=== PATIENT | female | born 1975 | race Hispanic/Latino ===

== ENCOUNTER 2019-02-10 17:08 | Inpatient (IN) | payer OTHER ==
--- OUTSIDE RECORDS SUMMARY | 2019-02-10 17:10 | XMS REPORT ---
:1975 Author Organization [facility] Address [address] [place] [address] Dr. Dangelo [address] [place] [id number] Care Team Providers Name Role Phone Unavailable Unavailable Unavailable Problems This patient has no known problems. Allergies, Adverse Reactions, Alerts This patient has no known allergies or adverse reactions. Medications This patient has no known medications.
[2019-02-10] MEDS ORDERED: ONDANSETRON 4 MG/2 ML VIAL ONE (19:31)
[2019-02-10] MEDS ORDERED: MORPHINE 2 MG/ML SYR ONE ×2 (19:31→20:25)
[2019-02-10] MEDS ORDERED: NA CHLORIDE 0.9% 1,000 ML ONE (19:32)
[2019-02-10 19:46] LABS: Absolute Lymphocytes (CBC) 2.1 K/uL (0.7-4.9); Basophils % 0.4 % (0-1.3); Hematocrit 40.9 % (36.0-45.0); Lymphocytes % 28.4 % (15.3-44.8)
[2019-02-10 20:04] LABS: ALT/SGPT 23 U/L (12-78); AST/SGOT 11 U/L (15-37); Albumin 3.9 g/dL (3.4-5.0); Alkaline Phosphatase 86 U/L (45-117); BUN Blood Urea Nitrogen 21 mg/dL (7-18); Bicarbonate 28 mmol/L (21-32); Bilirubin Direct < 0.1 mg/dL (0-0.2); Bilirubin Total 0.3 mg/dL (0.2-1.0); Glucose Level 88 mg/dL (74-106); Lipase 78 U/L (73-393); Potassium 3.6 mmol/L (3.5-5.1); Protein, Total 7.1 g/dL (6.4-8.2); Sodium Level 141 mmol/L (136-145)
[2019-02-10] MEDS ORDERED: FAMOTIDINE 20 MG/2 ML VIAL IV ONE (20:11)
[2019-02-10 20:19] LABS: Urine Bacteria <20 /HPF (<20)
[2019-02-10 20:22] LABS: Urine Culture Reflex Order NOT NEEDED
[2019-02-10 20:23] LABS: Urine Mucus 1+ /HPF (NONE SEEN)
[2019-02-10] MEDS ORDERED: KETOROLAC 30 MG/ML INJ ONE (20:26)
--- NOTE | 2019-02-10 20:43 | RAD REPORT ---
EXAM DESCRIPTION: US - Abdomen Exam Limited - 02/10/2019 8:35 pm CLINICAL HISTORY: Abdominal pain. COMPARISON: 2009 FINDINGS: The gallbladder wall is not thickened. Multiple gallstones. One is present within the gal lbladder neck The biliary tree is upper limits normal caliber. IMPRESSION: Cholelithiasis without evidence cholecystitis
[2019-02-10 21:28] LABS: Urine Blood 2+ (NEG); Urine Glucose NEGATIVE (NEG); Urine Protein NEGATIVE (NEG); Urine Specific Gravity >1.030 (1.005-1.030); Urine pH 5.5 (5.0-7.0)
--- NOTE | 2019-02-10 21:58 | ER ---
Nurse's Notes [facility] Name: Ivana Diaz Age: 44 yrs Sex: Female : 1975 Arrival Date: 02/10/2019 Time: 17:10 Bed 28 Private MD: Mary Bañuelos H Diagnosis: Cholelithiasis;Upper abdominal pain, unspecified-intractable Presentation: 02/10 17:45 Presenting complaint: Patient states: "Yesterday I woke up with sharp pain here (pt aj1 points to epigastric area) and goes to my right side and back. The same thing happened 2 weeks ago, it went away then so I figured it would go away again, but then I started throwing up and I have a low grade fever". Transition of care: patient was not received from another setting of care. Onset of symptoms was February 09, 2018. Risk Assessment: Do you want to hurt yourself or someone else? Patient reports no desire to harm self or others. Initial Sepsis Screen: Does the patient meet any 2 criteria? HR > 90 bpm. No. Patient's initial sepsis screen is negative. Does the patient have a suspected source of infection? Yes: Acute abdominal pain. Care prior to arrival: None. 17:45 Method Of Arrival: Ambulatory aj1 17:45 Acuity: SHEN 3 aj1 Triage Assessment: 17:47 General: Appears in no apparent distress. uncomfortable, Behavior is calm, cooperative, aj1 appropriate for age. Pain: Complains of pain in epigastric area Pain radiates to back and right upper quadrant Pain currently is 5 out of 10 on a pain scale. Neuro: Level of Consciousness is awake, alert, obeys commands. Cardiovascular: Patient's skin is warm and dry. Respiratory: Airway is patent Respiratory effort is even, unlabored, Respiratory pattern is regular, symmetrical. GI: Reports upper abdominal pain, nausea, vomiting. RN SURGERY: 17:47 LMP N/A - control method aj1 Historical: - Allergies: 17:47 No Known Allergies; aj1 - Home Meds: 17:47 Lisinopril Oral [Active]; aj1 - PMHx: 17:47 Hypertension; aj1 - PSHx: 17:47 breast augmentation; aj1 - Immunization history:: Flu vaccine is up to date. - Social history:: Smoking status: Patient/guardian denies using tobacco. - Ebola Screening: : Patient denies travel to an Ebola-affected area in the 21 days before illness onset. Screenin:18 Abuse screen: Denies threats or abuse. Denies injuries from another. Nutritional rv screening: No deficits noted. Tuberculosis screening: No symptoms or risk factors identified. Fall Risk None identified. Assessment: 19:15 General: Appears in no apparent distress. comfortable, Behavior is calm, cooperative. rv Pain: Complains of pain in back. Neuro: Level of Consciousness is awake, alert, obeys commands, Oriented to person, place, time, situation. Cardiovascular: Patient's skin is warm and dry. Respiratory: Airway is patent. GI: Abdomen is round non-distended. GI: Parent/caregiver reports the patient having vomiting. : No signs and/or symptoms were reported regarding the genitourinary system. EENT: No signs and/or symptoms were reported regarding the EENT system. Derm: Skin is intact. Musculoskeletal: No signs and/or symptoms reported regarding the musculoskeletal system. 21:25 Reassessment: Patient appears in no apparent distress at this time. Patient and/or rv family updated on plan of care and expected duration. Pain level reassessed. Patient is alert, oriented x 3, equal unlabored respirations, skin warm/dry/pink. patient is more comfortable after giving the pain medications. Jose G Aguilar talked to the patient and family at bedside, explained the result of the diagnostics and plan of care. Patient states feeling better. Patient states symptoms have improved. 22:00 Reassessment: patient instructed on NPO after midnight. rv Vital Signs: 17:47 BP 119 / 88; Pulse 102; Resp 20; Temp 98.5; Pulse Ox 100% on R/A; Weight 74.84 kg (R); aj1 Height 5 ft. 7 in. (170.18 cm) (R); 19:39 BP 104 / 66; Pulse 75; Resp 16; Pulse Ox 100% on R/A; rv 20:30 BP 108 / 73; Pulse 80; Resp 15 S; Pulse Ox 100% on R/A; rv 21:00 BP 122 / 86; Pulse 84; Resp 15; Pulse Ox 100% on R/A; rv 22:00 BP 113 / 78; Pulse 73; Resp 14; Pulse Ox 100% on R/A; rv 22:30 BP 109 / 78; Pulse 78; Resp 15; Pulse Ox 100% on R/A; rv 23:00 BP 121 / 95; Pulse 72; Resp 16; Pulse Ox 100% ; rv 17:47 Body Mass Index 25.84 (74.84 kg, 170.18 cm) aj1 ED Course: 17:10 Patient arrived in ED. ag5 17:12 Mary Bañuelos DO is Private Physician. ag5 17:47 Triage completed. aj1 17:47 Arm band placed on Patient placed in waiting room, Patient notified of wait time. aj1 18:49 Jose G Aguilar PA is PHCP. cp 18:49 Fabiano Guzmán MD is Attending Physician. cp 18:54 Venkata Knowles, CURTIS is Primary Nurse. rv 19:18 Patient has correct armband on for positive identification. Bed in low position. Call rv light in reach. Side rails up X 1. Pulse ox on. NIBP on. 19:44 No provider procedures requiring assistance completed. Inserted saline lock: 20 gauge rv in left antecubital area, using aseptic technique. Blood collected. 20:36 Ultrasound completed. Patient tolerated well. Notified Primary Nurse . sg3 20:37 US Abdomen Limited In Process Unspecified. EDMS 21:57 Christopher Fields MD is Hospitalizing Provider. cp 23:50 Patient admitted, IV remains in place. rv Administered Medications: 19:45 Drug: morphine 2 mg Route: IVP; Site: left antecubital; rv 19:46 Drug: NS 0.9% 1000 ml Route: IV; Rate: 1 bolus; Site: left antecubital; rv 22:30 Follow up: IV Status: Completed infusion rv 19:46 Drug: Zofran 4 mg Route: IVP; Site: left antecubital; rv 20:29 Follow up: Response: No adverse reaction rv 20:18 Drug: Pepcid 20 mg Route: IVP; Site: left antecubital; rv 20:29 Follow up: Response: No adverse reaction rv 20:28 Drug: morphine 2 mg {Note: rass 0.} Route: IVP; Site: left antecubital; rv 20:28 Follow up: Response: No adverse reaction; Pain is unchanged, physician notified rv 23:07 Follow up: Response: No adverse reaction; Marked relief of symptoms; RASS: Alert and rv Calm (0) 20:29 Drug: TORadol 30 mg Route: IVP; Site: left antecubital; rv 22:24 Follow up: Response: No adverse reaction mg2 22:04 Drug: Rocephin - (cefTRIAXone) 1 grams Route: IVPB; Infused Over: 30 mins; Site: left rv antecubital; 22:25 Follow up: Response: No adverse reaction; IV Status: Completed infusion mg2 Outcome: 21:58 Decision to Hospitalize by Provider. cp 23:49 Admitted to Med/surg accompanied by nurse, via wheelchair, room 229, with chart, Report rv called to MILLICENT ACEVEDO 23:49 Condition: good 23:49 Instructed on the need for admit. 02/11 00:17 Patient left the ED. rv Signatures: Dispatcher [employer] Viv Montano RN RN aj1 Jose G Aguilar PA PA cp Godinez, Sarah sg3 Nnamdi Montalvo RN RN mg2 Venkata Knowles RN RN rv Ronel Bartlett ag5
--- NOTE | 2019-02-10 21:59 | EDPHYS ---
Physician Documentation [facility] Name: Ivana Diaz Age: 44 yrs Sex: Female : 1975 Arrival Date: 02/10/2019 Time: 17:10 Bed 28 Private MD: Mary Bañuelos H ED Physician Fabiano Guzmán HPI: 02/10 19:50 This 44 yrs old Female presents to ER via Ambulatory with complaints of cp Vomiting, Fever, Low Back Pain. 19:50 The patient presents with abdominal pain in the epigastric area. cp 19:50 Onset: The symptoms/episode began/occurred yesterday. The symptoms radiate to right cp back. Associated signs and symptoms: Pertinent positives: nausea and vomiting, Pertinent negatives: chest pain, constipation, diarrhea, dysuria, shortness of breath, vomiting blood. The symptoms are described as constant. Severity of pain: in the emergency department the pain is unchanged is a 5 / 10. 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 - Social history:: Smoking status: Patient/guardian denies using tobacco. - Ebola Screening: : Patient denies travel to an Ebola-affected area in the 21 days before illness onset. ROS: 20:00 Constitutional: Positive for poor PO intake, Negative for body aches, chills, fever. cp 20:00 Eyes: Negative for injury, pain, redness, and discharge. cp 20:00 ENT: Negative for drainage from ear(s), ear pain, sore throat, difficulty swallowing, cp difficulty handling secretions. 20:00 Cardiovascular: Negative for chest pain, palpitations. 20:00 Respiratory: Negative for cough, shortness of breath, wheezing. 20:00 Abdomen/GI: Positive for abdominal pain, nausea and vomiting, of the epigastric area, Negative for diarrhea, constipation, hematemesis, black/tarry stool, rectal bleeding. 20:00 Back: Positive for radiated pain. 20:00 : Negative for urinary symptoms, pelvic pain. 20:00 Skin: Negative for rash. 20:00 Neuro: Negative for altered mental status, headache, weakness. 20:00 All other systems are negative. Exam: 20:05 Constitutional: The patient appears in no acute distress, alert, awake, non-toxic, well cp developed, well nourished, uncomfortable. 20:05 Head/Face: Normocephalic, atraumatic. cp 20:05 Eyes: Periorbital structures: appear normal, Conjunctiva: normal, no exudate, no injection, Sclera: no appreciated abnormality, Lids and lashes: appear normal, bilaterally. 20:05 ENT: External ear(s): are unremarkable, Nose: is normal, Mouth: is normal, Posterior pharynx: is normal, airway is patent, no erythema, no exudate. 20:05 Neck: ROM/movement: is normal, is supple, without pain, no range of motions limitations, no nuchal rigidity. 20:05 Chest/axilla: Inspection: normal, Palpation: is normal, no crepitus, no tenderness. 20:05 Cardiovascular: Rate: normal, Rhythm: regular. 20:05 Respiratory: the patient does not display signs of respiratory distress, Respirations: normal, no use of accessory muscles, no retractions, labored breathing, is not present, Breath sounds: are clear throughout, no decreased breath sounds. 20:05 Abdomen/GI: Inspection: abdomen appears normal, Bowel sounds: active, all quadrants, Palpation: soft, in all quadrants, moderate abdominal tenderness, in the epigastric area and right upper quadrant, rebound tenderness, is not appreciated, voluntary guarding, is elicited in the epigastric area and right upper quadrant. 20:05 Back: pain, that is moderate, ROM is normal. 20:05 Skin: no rash present. 22:45 ECG was reviewed by the Attending Physician. cp Vital Signs: 17:47 BP 119 / 88; Pulse 102; Resp 20; Temp 98.5; Pulse Ox 100% on R/A; Weight 74.84 kg (R); aj1 Height 5 ft. 7 in. (170.18 cm) (R); 19:39 BP 104 / 66; Pulse 75; Resp 16; Pulse Ox 100% on R/A; rv 20:30 BP 108 / 73; Pulse 80; Resp 15 S; Pulse Ox 100% on R/A; rv 21:00 BP 122 / 86; Pulse 84; Resp 15; Pulse Ox 100% on R/A; rv 22:00 BP 113 / 78; Pulse 73; Resp 14; Pulse Ox 100% on R/A; rv 22:30 BP 109 / 78; Pulse 78; Resp 15; Pulse Ox 100% on R/A; rv 23:00 BP 121 / 95; Pulse 72; Resp 16; Pulse Ox 100% ; rv 17:47 Body Mass Index 25.84 (74.84 kg, 170.18 cm) aj1 MDM: 19:15 Patient medically screened. cp 20:00 Differential diagnosis: cholecystitis, Cholelithiasis, pancreatitis, Peptic Ulcer cp Disease, Perf. Duodenal Ulcer, Perf. Gastric Ulcer, Pyelonephritis, Ureterolithiasis, urinary tract infection. 21:00 Data reviewed: vital signs, nurses notes, lab test result(s), radiologic studies, cp ultrasound. 21:10 Physician consultation: Matthew Melgar MD was called at 21:05, was contacted at 21:05, regarding consult, patient's condition, will admit patient for cholecystectomy in morning if patient continues to have pain. 21:30 ED course: Patient requesting if DR Fields is available to perform surgery. 02/10 17:40 Order name: Urine Culture [facility] 02/10 17:40 Order name: Urine Microscopic Only; Complete Time: 20:55 [facility] 02/10 19:04 Order name: Urine Dipstick--Ancillary (enter results) [facility] 02/10 19:21 Order name: Basic Metabolic Panel; Complete Time: 20:22 02/10 20:55 Interpretation: Normal except: BUN 21; GFR 70. 02/10 19:21 Order name: CBC with Diff; Complete Time: 20:22 02/10 19:21 Order name: Creatinine for Radiology; Complete Time: 20:22 02/10 19:21 Order name: Hepatic Function; Complete Time: 20:22 cp 02/10 19:21 Order name: Lipase; Complete Time: 20:22 02/10 21:58 Order name: Urine --Ancillary (enter results) [facility] 02/10 22:25 Order name: Protime (+INR) EDMN 02/10 22:25 Order name: PTT, Activated Partial Thromb EDMS 02/10 22:25 Order name: Basic Metabolic Panel EDMS 02/10 22:25 Order name: Basic Metabolic Panel EDMS 02/10 22:25 Order name: CBC with Automated Diff EDMS 02/10 17:40 Order name: Urine Dipstick-Ancillary (obtain specimen); Complete Time: 19:03 snw 02/10 19:21 Order name: US Abdomen Limited; Complete Time: 20:55 cp 02/10 22:13 Order name: EKG; Complete Time: 22:14 cp 02/10 22:13 Order name: XRAY Chest (1 view) cp 02/10 22:25 Order name: NPO EDMS 02/10 22:25 Order name: CBC with Automated Diff EDMS 02/10 22:25 Order name: Lipase EDMS 02/10 22:25 Order name: Lipase EDMS 02/10 22:25 Order name: Liver (Hepatic) Function EDMS 02/10 22:25 Order name: Liver (Hepatic) Function EDMS 02/10 19:21 Order name: IV Saline Lock; Complete Time: 20:19 cp 02/10 19:21 Order name: Labs collected and sent; Complete Time: 20:19 cp 02/10 21:38 Order name: Urine Test (obtain specimen); Complete Time: 21:47 cp EC:45 Rate is 66 beats/min. Rhythm is regular. WI interval is normal. QRS interval is normal. cp QT interval is normal. Interpreted by me. Reviewed by me. Administered Medications: 19:45 Drug: morphine 2 mg Route: IVP; Site: left antecubital; rv 19:46 Drug: NS 0.9% 1000 ml Route: IV; Rate: 1 bolus; Site: left antecubital; rv 22:30 Follow up: IV Status: Completed infusion rv 19:46 Drug: Zofran 4 mg Route: IVP; Site: left antecubital; rv 20:29 Follow up: Response: No adverse reaction rv 20:18 Drug: Pepcid 20 mg Route: IVP; Site: left antecubital; rv 20:29 Follow up: Response: No adverse reaction rv 20:28 Drug: morphine 2 mg {Note: rass 0.} Route: IVP; Site: left antecubital; rv 20:28 Follow up: Response: No adverse reaction; Pain is unchanged, physician notified rv 23:07 Follow up: Response: No adverse reaction; Marked relief of symptoms; RASS: Alert and rv Calm (0) 20:29 Drug: TORadol 30 mg Route: IVP; Site: left antecubital; rv 22:24 Follow up: Response: No adverse reaction mg2 22:04 Drug: Rocephin - (cefTRIAXone) 1 grams Route: IVPB; Infused Over: 30 mins; Site: left rv antecubital; 22:25 Follow up: Response: No adverse reaction; IV Status: Completed infusion mg2 Disposition: 02/10/19 21:58 Hospitalization ordered by Christopher Fields for Observation. Preliminary diagnosis are Cholelithiasis, Upper abdominal pain, unspecified - intractable. - Bed requested for Telemetry/MedSurg (observation). - Status is Observation. rv - Condition is Stable. - Problem is new. - Symptoms have improved. UTI on Admission? No Addendum: 02/13/2019 09:04 Co-signature as Attending Physician, Fabiano Guzmán MD I agree with the assessment and k dr plan of care. Signatures: Dispatcher [employer] EDMS Viv Rodrigez RN RN aj1 Fabiano Guzmán MD MD kdr Mirna Bravo, MID TEACHER-C MID TEACHER-Csnw Jose G Aguilar PA PA Maria E Kaiser, CURTIS RN Venkata Knowles RN RN Nnamdi Montalvo RN mg2 Corrections: (The following items were deleted from the chart) 02/10 22:24 22:13 EKG - Nurse/Tech ordered. mg2 22:54 21:58 Hospitalization Ordered by Christopher Fields MD for Observation. Preliminary cg diagnosis is Cholelithiasis; Upper abdominal pain, unspecified - intractable. Bed requested for Telemetry/MedSurg (observation). Status is Observation. Condition is Stable. Problem is new. Symptoms have improved. UTI on Admission? No. cp 02/11 00:17 02/10 22:54 02/10/2019 21:58 Hospitalization Ordered by Christopher Fields MD for rv Observation. Preliminary diagnosis is Cholelithiasis; Upper abdominal pain, unspecified - intractable. Bed requested for Telemetry/MedSurg (observation). Status is Observation. Condition is Stable. Problem is new. Symptoms have improved. UTI on Admission? No. cg
[2019-02-10] MEDS ORDERED: CEFTRIAXONE/SWI 1gm 1 GM/10 ML SYR ONE (22:01)
[2019-02-10] MEDS ORDERED: ONDANSETRON 4 MG/2 ML VIAL IV PRN (22:20)
[2019-02-10] MEDS ORDERED: ACETAMINOPHEN 500 MG TAB PO PRN (22:20)
[2019-02-10 22:36] LABS: Urine Specific Gravity >1.030 (1.005-1.030)
[2019-02-10] MEDS: D5 0.45 NS 1,000 ML IV SCH (23:00)
[2019-02-11 00:44] VITALS: BMI 26.0
[2019-02-11] MEDS: MORPHINE 4 MG/ML SYR IV PRN ×4 (01:49→22:31)
[2019-02-11 06:27] LABS: Absolute Lymphocytes (CBC) 2.6 K/uL (0.7-4.9); Basophils % 0.6 % (0-1.3); Hematocrit 38.1 % (36.0-45.0); Lymphocytes % 39.9 % (15.3-44.8); MPV 7.9 fL (7.6-11.3); RBC Red Blood Cell Count 4.09 M/uL (3.86-4.86)
[2019-02-11 06:30] LABS: Protime INR 1.02
[2019-02-11 06:42] LABS: ALT/SGPT 22 U/L (12-78); AST/SGOT 10 U/L (15-37); Albumin 3.7 g/dL (3.4-5.0); Alkaline Phosphatase 70 U/L (45-117); BUN Blood Urea Nitrogen 22 mg/dL (7-18); Bicarbonate 25 mmol/L (21-32); Bilirubin Direct < 0.1 mg/dL (0-0.2); Bilirubin Total 0.5 mg/dL (0.2-1.0); Glucose Level 98 mg/dL (74-106); Lipase 109 U/L (73-393); Potassium 3.9 mmol/L (3.5-5.1); Protein, Total 6.7 g/dL (6.4-8.2); Sodium Level 141 mmol/L (136-145)
[2019-02-11] MEDS: D5 0.45 NS 1,000 ML IV SCH ×2 (10:05→17:18)
--- NOTE | 2019-02-11 11:37 | RAD REPORT ---
EXAM DESCRIPTION: RAD - Chest Single View - 02/10/2019 10:43 pm CLINICAL HISTORY: epigastric pain Chest pain. COMPARISON: No comparisons FINDINGS: Portable technique limits examination quality. The lungs are grossly clear. The heart is normal in size. No displaced fractures. IMPRESSION: No acute intrathoracic process suspected.
--- NOTE | 2019-02-11 14:15 | EKG ---
Test Date: 2019-02-10 Test Time: 22:38:05 Beam House Inspector: REMIGIO MEASUREMENT RESULTS: Intervals: Rate: 66 ID: [id number] QRSD: 92 QT: 414 QTc: 434 [place]: P: 37 ID: [id number] QRS: 82 T: 63 INTERPRETIVE STATEMENTS: Normal sinus rhythm Normal ECG No previous ECG available for comparison Electronically Signed On 02-11-19 14:13:24 CDT by Dimas Griffith
[2019-02-11] MEDS: CEFTRIAXONE/SWI 1gm 1 GM/10 ML SYR IV SCH ×2 (14:36→20:38)
--- NOTE | 2019-02-12 06:19 | HP ---
Date of Admission: 02/10/2019 Diagnoses: Acute cholecystitis, symptomatic cholelithiasis, intractable right upper quadrant pain. History Of Present Illness: This is the case of a 44-year-old patient who came to us with the above symptoms. It has been like that for several weeks. Last night, she just got worse associated with n ausea. The pain did not go away this time like before. She denies any dysuria, hematuria, hematoche elsa, or melena. Denies any recent traveling out of the country. Denies any family members sick at [facility]. 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 She could not go home. She has this pain, which did not go away. She was admitted to the hospital. Past Medical History: Hypertension. Medications: Lisinopril, she takes at night. Allergies: NONE. Surgeries: Breast augmentation. Social History: She does not smoke. She does not drink alcohol. Review of Systems: Ten points otherwise is unremarkable. Physical Examination: General: Patient is awake, alert. HEENT: Pupils are equal and reactive, anicteric. Neck: Supple. Chest: Bilateral breath sounds. Abdomen: Soft and depressible. Epigastric right upper quadrant pain with Rodriges sign. Pelvic: Deferred. Breasts: Deferred. Rectal: Deferred. Extremities: Good capillary refill. Neuro: Oriented x3. Imaging Data: Abdominal ultrasound interpreted by Dr. Santo as cholelithiasis and one of the stone is present within the gallbladder neck. Blood work shows a WBC count of 7.3, hemoglobin at 13.7, IN R is 0.2. Total bilirubin of 0.3 and alkaline phosphatase 86. Assessment: 44 years old patient with acute cholecystitis, symptomatic cholelithiasis. Given her an tibiotics. N.p.o. IV fluids. She was fully explained the benefits, alternatives, and risks of lapa roscopic, possible open cholecystectomy, which include, but not limited to infection, bleeding, damag e to adjacent structures, anesthesia complication, cholelithiasis, bile leak, pancreatitis, OR, and e emilee . She also understands this may not relieve any symptoms. She might need more than one maria a gical intervention. She understood, signed a consent. We are going to move the case as soon as the hospitalist is available since there are a few cases going around with instrumentation limitations, a nd as soon as they give us the clearance to go for surgery, we are going to go for it. AMANDA Voice ID: [id number]
[2019-02-12] MEDS: D5 0.45 NS 1,000 ML IV SCH ×2 (06:44→07:00)
[2019-02-12] MEDS ORDERED: PROPOFOL 200 MG/20 ML VIAL IV ONE (07:38)
[2019-02-12] MEDS ORDERED: FENTANYL CITR 100 MCG/2 ML ONE (07:38)
[2019-02-12] MEDS ORDERED: ROCURONIUM 50 MG/5 ML VIAL IV ONE (07:38)
[2019-02-12] MEDS ORDERED: MIDAZOLAM HCL 2 MG/2 ML INJ ONE (07:39)
[2019-02-12] MEDS ORDERED: LIDOCAINE 2% MPF 5 ML VIAL ONE (07:39)
[2019-02-12] MEDS: Ringers Lactate 1,000 ML IV ONE ×2 (07:47→08:05)
[2019-02-12] MEDS ORDERED: KETOROLAC 30 MG/ML INJ ONE (08:46)
[2019-02-12] MEDS ORDERED: ONDANSETRON 4 MG/2 ML VIAL ONE (08:46)
[2019-02-12] MEDS ORDERED: dexAMETHasone 10 MG/ML VIAL ONE (08:46)
--- NOTE | 2019-02-12 08:50 | P.BOP ---
Preoperative diagnosis: Acute cholecystitis, symptomatic cholelithiasis Postoperative diagnosis: same Primary procedure: Laparoscopic cholecystectomy Estimated blood loss: <10cc Specimen: gb Findings: as above, clear translucent liver cyst Anesthesia: General Complications: None Transferred to: Recovery Room Condition: Good
[2019-02-12] MEDS ORDERED: GLYCOPYRROLATE 0.2 MG/ML SYR ONE ×3 (08:55→09:26)
[2019-02-12] MEDS ORDERED: NEOSTIGMINE 1 MG/ML -10 ML VIAL ONE (08:56)
[2019-02-12] MEDS: CEFTRIAXONE/SWI 1gm 1 GM/10 ML SYR IV SCH (09:00)
[2019-02-12] MEDS ORDERED: HYDROCODONE/APAP 5/325 MG TAB PO PRN (09:32)
[2019-02-12 10:08] VITALS: O2SAT 100
[2019-02-12] MEDS: HYDROMORPHONE HCL 1 MG/ML INJ ONE ×2 (10:16→10:23)
[2019-02-12 15:07] VITALS: BP 98/60; TEMP 97.8
--- NOTE | 2019-02-12 20:10 | OP ---
Date of Procedure: 02/12/2019 Surgeon: Christopher Fields MD Fur Blowing Machine Operator: None. Preoperative Diagnoses: Acute cholecystitis, symptomatic cholelithiasis. Postoperative Diagnoses: Acute cholecystitis, symptomatic cholelithiasis. Procedure: Laparoscopic cholecystectomy. Estimated Blood Loss: Less than 10 cc. Findings: As above and also translucent clear liver cyst. Complications: None. Indications: This is a case of a 44-year-old patient, comes to us with above diagnoses. Fully expla ined the benefits, alternatives, and risks of laparoscopic, possible open cholecystectomy, which incl ude, but not limited to infection, bleeding, damage to adjacent structures, anesthesia complication, cholelithiasis, bile leak, pancreatitis, MN, and even . She also understands this might not rel ieve any symptoms. She might need more than one surgical intervention. She understood, signed the c onsent. Description Of Procedure: Patient was brought to the operating room, placed in supine position. Ane sthesia was done without complication. Abdominal area was prepped and draped in a sterile fashion. Marcaine 0.5% was injected for local anesthetic, followed by sharp incision of the skin in the infrau mbilical region. Incision was carried down to fascia, which was opened under direct vision. Periton eum was encountered, opened under direct vision. Vicryl #1 placed inside the fascia. Zaina trocar was carefully introduced. No bleeding was obtained. I placed 3 more trocars in the epigastric and r ight upper quadrant area under direct visualization. This allowed me to put a grasper in the fundus of the gallbladder. There were some adhesions of omentum to the gallbladder, carefully removed. The n, we put a grasper in the infundibulum, retracted gallbladder in the inferolateral fashion exposing the triangle of Calot and obtaining critical view of safety. Cystic duct and cystic artery were ethan rly isolated, freed circumferentially, and the connection between those and the gallbladder were ethan rly identified. I proceeded to ligate those by using at least 3 clips proximal, 1 clip distal, ligat ion in middle. Same was done with the cystic artery. No bile leak, no bleeding. There was a liver cyst translucent next to the gallbladder, which we were able to leave it intact. The gallbladder was removed from liver using Bovie cauterizer and removed from abdominal cavity using an EndoCatch throu gh the umbilical incision. The area was inspected once again. No bile leak, no bleeding. Clips wer e intact. At that moment, I proceeded to remove the trocars under direct vision. Deflated the pneum operitoneum. Closed the fascia with #1 Vicryl. Irrigated subcu tissue, closed that with 3-0 chromic and skin in a subcuticular fashion with 3-0 chromic and Steri-Strips on top. Sponge count and instr ument counts were correct. The patient tolerated the procedure well. The patient was sent to recove ry in stable condition. JESS/LUCY Voice ID: [id number] Report ID: [id number]
== END 2019-02-12 12:33 | disposition home or self-care (01) | DRG 419 ==
LOC: ER 17:08 → OBSVTOIN 22:33 → ERHOLD 22:33 → 2ND 23:47
PROVIDERS: ADMIT Surgery; ATTEND Surgery
PROC: 0FT44ZZ Resection of Gallbladder, Percutaneous Endoscopic Approach (ICD-10-PCS; principal; 2019-02-12 09:00)
DX: K80.00 Calculus of gallbladder with acute cholecystitis without obstruction (principal); I10 Essential (primary) hypertension
CPT/HCPCS: 36415; 71045; 76705; 80048; 80076; 81003; 81015; 81025; 83690; 85025; 85610; 85730; 87086; 87088; 88304; 93005; 96361; 96365; 96375; 99285; J0696; J1100; J1170; J2250; J2270; J2405; J2704; J2710; J3010; J7030

== ENCOUNTER 2019-02-19 21:21 | Emergency (ER) | payer OTHER ==
[2019-02-19] MEDS ORDERED: ONDANSETRON 4 MG/2 ML VIAL ONE (22:17)
[2019-02-19] MEDS ORDERED: KETOROLAC 30 MG/ML INJ ONE (22:17)
[2019-02-19 22:22] LABS: Basophils % 0.8 % (0-1.3); Hematocrit 38.2 % (36.0-45.0); Lymphocytes % 33.7 % (15.3-44.8); MPV 8.2 fL (7.6-11.3); RBC Red Blood Cell Count 4.06 M/uL (3.86-4.86)
[2019-02-19 22:42] LABS: Albumin 3.7 g/dL (3.4-5.0); Bilirubin Total 0.3 mg/dL (0.2-1.0); Potassium 3.7 mmol/L (3.5-5.1); Protein, Total 6.6 g/dL (6.4-8.2)
--- NOTE | 2019-02-19 23:02 | EDPHYS ---
Physician Documentation [facility] Name: Ivana Diaz Age: 44 yrs Sex: Female : 1975 Arrival Date: 02/19/2019 Time: 21:24 Bed 4 Private MD: ED Physician Ochoa Owusu HPI: 02/19 21:47 This 44 yrs old Female presents to ER via Ambulatory with complaints of ps1 Abdominal Pain, SURGICAL SIGHT INFECTION. 21:47 Patient is post op cholecystectomy per Donnie. Patient states that she is having post ps1 operative site pain. Patient states that she had some clear fluid from the umbilical scar. Mild pain over the region of the liver. No fever. Has not taken home T3 06/25 stating that it doesn't work and she has been constipated. Normal vitals at triage, afebrile. . 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 - Social history:: Smoking status: Patient/guardian denies using tobacco, Patient uses alcohol, only on a social basis. Patient/guardian denies using street drugs, IV drugs. - Ebola Screening: : No symptoms or risks identified at this time. ROS: 21:47 Constitutional: Negative for fever, chills, and weight loss, Eyes: Negative for injury, ps1 pain, redness, and discharge, Cardiovascular: Negative for chest pain, palpitations, and edema, Respiratory: Negative for shortness of breath, cough, wheezing, and pleuritic chest pain, MS/Extremity: Negative for injury and deformity, Skin: Negative for injury, rash, and discoloration, Neuro: Negative for headache, weakness, numbness, tingling, and seizure. 21:47 Abdomen/GI: Positive for abdominal pain, clear fluid from surgical scar. . Exam: 21:47 Constitutional: This is a well developed, well nourished patient who is awake, alert, ps1 and in no acute distress. Head/Face: Normocephalic, atraumatic. Eyes: Pupils equal round and reactive to light, extra-ocular motions intact. Lids and lashes normal. Conjunctiva and sclera are non-icteric and not injected. Chest/axilla: Normal chest wall appearance and motion. Nontender with no deformity. No lesions are appreciated. Cardiovascular: Regular rate and rhythm. No gallops, murmurs, or rubs. Normal PMI, no JVD. No pulse deficits. Respiratory: Lungs have equal breath sounds bilaterally, clear to auscultation and percussion. No rales, rhonchi or wheezes noted. No increased work of breathing, no retractions or nasal flaring. 21:47 Abdomen/GI: Inspection: scar(s), are noted in the suprapubic area and right upper quadrant, surgical scars were CDI. No signs of infection. No leakage of fluid. Subcutaneous stitching. . Vital Signs: 21:37 BP 108 / 82; Pulse 85; Resp 18; Temp 97.8(TE); Pulse Ox 100% ; Weight 72.57 kg; Height mg2 5 ft. 7 in. (170.18 cm); Pain 6/10; 22:33 BP 107 / 78; Pulse 72; Resp 16; Pulse Ox 99% ; rr5 23:10 BP 105 / 72; Pulse 75; Resp 17; Temp 97.2; Pulse Ox 99% ; rr5 21:37 Body Mass Index 25.06 (72.57 kg, 170.18 cm) mg2 MDM: 21:47 Data reviewed: vital signs, nurses notes. ps1 22:02 Patient medically screened. ps1 22:56 Data reviewed: lab test result(s). Counseling: I had a detailed discussion with the ps1 patient and/or guardian regarding: the historical points, exam findings, and any diagnostic results supporting the discharge/admit diagnosis, the need for outpatient follow up, with Dr. Fields for reevaluation, to return to the emergency department if symptoms worsen or persist or if there are any questions or concerns that arise at home. ED course: Afebrile. labs are WNL. Benign abdomen. Will have patient follow up with Dr. Fields to readdress surgical site pain. Home with tramadol as she is not taking T3, zofran. . 02/19 22:14 Order name: CBC with Diff; Complete Time: 22:43 rr5 02/19 22:14 Order name: CMP; Complete Time: 22:43 rr5 Administered Medications: 22:24 Drug: Zofran 4 mg Route: IVP; Site: right antecubital; rr5 23:12 Follow up: Response: No adverse reaction rr5 22:26 Drug: TORadol 30 mg Route: IVP; Site: right antecubital; rr5 23:12 Follow up: Response: No adverse reaction rr5 Disposition: 02/19/19 23:00 Discharged to Home. Impression: Post operative pain. - Condition is Stable. - Discharge Instructions: Pain Relief Preoperatively and Postoperatively. - Prescriptions for tramadol 100 mg Oral tablet extended release 24 hr - take 1 tablet by ORAL route once daily; 10 tablet. Zofran 4 mg Oral Tablet - take 1 tablet by ORAL route every 12 hours As needed; 20 tablet. - Medication Reconciliation Form, Thank You Letter, Antibiotic Education, Prescription Opioid Use form. - Follow up: Private Physician; When: Tomorrow; Reason: Recheck today's complaints, Continuance of care. Follow up: Emergency Department; When: As needed; Reason: Fever > 102 F, Worsening of condition. - Problem is new. - Symptoms are unchanged. Signatures: Dispatcher [employer] EDMS Ochoa Owusu MD MD ps1 Nnamdi Montalvo RN RN mg2 Vinh Morales RN RN rr5 Corrections: (The following items were deleted from the chart) 23:13 23:00 02/19/2019 23:00 Discharged to Home. Impression: Post operative pain. Condition rr5 is Stable. Forms are Medication Reconciliation Form, Thank You Letter, Antibiotic Education, Prescription Opioid Use. Follow up: Private Physician; When: Tomorrow; Reason: Recheck today's complaints, Continuance of care. Follow up: Emergency Department; When: As needed; Reason: Fever > 102 F, Worsening of condition. Problem is new. Symptoms are unchanged. ps1
--- NOTE | 2019-02-19 23:02 | ER ---
Nurse's Notes [facility] Name: Ivana Diaz Age: 44 yrs Sex: Female : 1975 Arrival Date: 02/19/2019 Time: 21:24 Bed 4 Private MD: Diagnosis: Post operative pain Presentation: 02/19 21:34 Presenting complaint: Patient states: i had cholecystectomy last Wednesday here and was mg2 discharge same day, 2nd day post -op i started to have constipation, last night til now i have pain in my post op site, there is clear drainage noted in the site. im on tylenol 3 but its not working. Transition of care: patient was not received from another setting of care. Onset of symptoms was February 14, 2019. Risk Assessment: Do you want to hurt yourself or someone else? Patient reports no desire to harm self or others. Initial Sepsis Screen: Does the patient meet any 2 criteria? No. Patient's initial sepsis screen is negative. Does the patient have a suspected source of infection? No. Patient's initial sepsis screen is negative. Care prior to arrival: None. 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 - Social history:: Smoking status: Patient/guardian denies using tobacco, Patient uses alcohol, only on a social basis. Patient/guardian denies using street drugs, IV drugs. - Ebola Screening: : No symptoms or risks identified at this time. Screenin:43 Abuse screen: Denies threats or abuse. Denies injuries from another. Nutritional mg2 screening: No deficits noted. Tuberculosis screening: No symptoms or risk factors identified. 22:05 Fall Risk IV access (20 points). Total Strong Fall Scale indicates No Risk (0-24 pts). rr5 Assessment: 21:40 General: Appears in no apparent distress. uncomfortable, Behavior is calm, cooperative, rr5 appropriate for age. 21:40 Pain: Complains of pain in abdomen Pain does not radiate. Pain currently is 6 out of 10 rr5 on a pain scale. Quality of pain is described as aching, Pain began gradually, Is intermittent. Neuro: Level of Consciousness is awake, alert, obeys commands, Oriented to person, place, time, situation, Appropriate for age. Cardiovascular: Capillary refill < 3 seconds Patient's skin is warm and dry. Respiratory: Reports cough that is Airway is patent Respiratory effort is even, unlabored, Respiratory pattern is regular, symmetrical. GI: Abdomen is round post laparoscopy incision noted at abdomen. wound dry and intact no discharge noted. Bowel sounds present X 4 quads. Abd is soft and non tender Reports lower abdominal pain, upper abdominal pain, bloating, epigastric pain, nausea. : No signs and/or symptoms were reported regarding the genitourinary system. EENT: No signs and/or symptoms were reported regarding the EENT system. Derm: Skin is intact, Skin temperature is warm. Musculoskeletal: Circulation, motion, and sensation intact. Capillary refill < 3 seconds. 22:15 Reassessment: Patient appears in no apparent distress at this time. Patient and/or rr5 family updated on plan of care and expected duration. Pain level reassessed. Patient is alert, oriented x 3, equal unlabored respirations, skin warm/dry/pink. no complaints made awaiting for result. 23:10 Reassessment: Patient appears in no apparent distress at this time. Patient is alert, rr5 oriented x 3, equal unlabored respirations, skin warm/dry/pink. reassess by ED provider. discharge instruction given and explained without complaints made, verbalized undertsnaidng. Vital Signs: 21:37 BP 108 / 82; Pulse 85; Resp 18; Temp 97.8(TE); Pulse Ox 100% ; Weight 72.57 kg; Height mg2 5 ft. 7 in. (170.18 cm); Pain 6/10; 22:33 BP 107 / 78; Pulse 72; Resp 16; Pulse Ox 99% ; rr5 23:10 BP 105 / 72; Pulse 75; Resp 17; Temp 97.2; Pulse Ox 99% ; rr5 21:37 Body Mass Index 25.06 (72.57 kg, 170.18 cm) mg2 ED Course: 21:24 Patient arrived in ED. cf2 21:37 Triage completed. mg2 21:39 Arm band placed on. mg2 21:42 Ochoa Owusu MD is Attending Physician. ps1 21:58 Vinh Morales, RN is Primary Nurse. rr5 22:00 Patient has correct armband on for positive identification. Bed in low position. Pulse rr5 ox on. NIBP on. 22:00 No provider procedures requiring assistance completed. rr5 22:24 Inserted saline lock: 20 gauge in right antecubital area, using aseptic technique. rr5 Blood collected. 23:11 IV discontinued, intact, bleeding controlled, No redness/swelling at site. Pressure rr5 dressing applied. Administered Medications: 22:24 Drug: Zofran 4 mg Route: IVP; Site: right antecubital; rr5 23:12 Follow up: Response: No adverse reaction rr5 22:26 Drug: TORadol 30 mg Route: IVP; Site: right antecubital; rr5 23:12 Follow up: Response: No adverse reaction rr5 Outcome: 23:00 Discharge ordered by MD. ps1 23:11 Discharged to home ambulatory, with family. rr5 23:11 Condition: stable 23:11 Discharge instructions given to patient, family, Instructed on discharge instructions, follow up and referral plans. medication usage, Demonstrated understanding of instructions, follow-up care, medications, Prescriptions given X 2. 23:13 Patient left the ED. rr5 Signatures: Ochoa Owusu MD MD ps1 Nnamdi Montalvo RN RN mg2 Vinh Morales, CURTIS RN rr5 Melanie Cohen cf2 Corrections: (The following items were deleted from the chart) 21:45 21:34 Presenting complaint: Patient states: i had cholecystectomy last Wednesday here and mg2 was discharge same day, 2nd day post -op , i have constipation for 7 days, last night til now i have pain in my post op site, there is clear drainage noted in the site. im on tylenol 3 but its not working. mg2
[2019-02-19 23:40] VITALS: O2SAT 99
[2019-02-19 23:41] VITALS: BP 105/72
[2019-02-19 23:49] VITALS: TEMP 98
== END 2019-02-19 23:13 | disposition home or self-care (01) ==
LOC: ER 21:21
DX: G89.18 Other acute postprocedural pain (principal); Z90.49 Acquired absence of other specified parts of digestive tract; I10 Essential (primary) hypertension
CPT/HCPCS: 85025; 36415; 80053; 96375; 96374; 99284; J2405

== ENCOUNTER 2019-03-16 16:35 | Emergency (ER) | payer OTHER ==
[2019-03-16 18:26] LABS: Absolute Lymphocytes (CBC) 2.4 K/uL (0.7-4.9); Basophils % 0.5 % (0-1.3); Hematocrit 41.7 % (36.0-45.0); Lymphocytes % 32.8 % (15.3-44.8); MPV 8.4 fL (7.6-11.3); RBC Red Blood Cell Count 4.45 M/uL (3.86-4.86)
[2019-03-16 18:28] LABS: Protime INR 0.99
--- NOTE | 2019-03-16 18:44 | RAD REPORT ---
EXAM DESCRIPTION: RAD - Chest Single View - 03/16/2019 6:35 pm CLINICAL HISTORY: chest pain, shortness of breath Chest pain. COMPARISON: Chest Pa And Lat (2 Views) dated 03/14/2019; Chest Single View dated 02/10/2019 FINDINGS: Portable technique limits examination quality. The lungs are grossly clear. The heart is normal in size. No displaced fractures. IMPRESSION: No acute intrathoracic process suspected.
[2019-03-16 18:46] LABS: ALT/SGPT 23 U/L (12-78); AST/SGOT 14 U/L (15-37); Albumin 4.3 g/dL (3.4-5.0); Alkaline Phosphatase 77 U/L (45-117); BUN Blood Urea Nitrogen 19 mg/dL (7-18); Bicarbonate 27 mmol/L (21-32); Bilirubin Direct 0.1 mg/dL (0-0.2); Bilirubin Total 0.6 mg/dL (0.2-1.0); Glucose Level 82 mg/dL (74-106); Magnesium 2.3 mg/dL (1.8-2.4); NT PRO-BNP 40 pg/mL (<125); Potassium 3.5 mmol/L (3.5-5.1); Protein, Total 7.3 g/dL (6.4-8.2); Sodium Level 140 mmol/L (136-145); Troponin (Emerg Dept Use Only) < 0.02 ng/mL (0.0-0.045)
--- NOTE | 2019-03-16 19:27 | RAD REPORT ---
EXAM DESCRIPTION: CT - Chest For Pe Angio - 03/16/2019 7:20 pm CLINICAL HISTORY: Chest pain. chest pain, shortness of breath, recent surgery COMPARISON: <Comparisons> TECHNIQUE: CT angiogram of the pulmonary arteries was performed with MIP. All CT scans are performed using dose optimization technique as appropriate and may include automated exposure control or mA/KV adjustment according to patient size. FINDINGS: No evidence of pulmonary thromboembolism. No acute aortic finding demonstrated. The lungs are clear. No significant pericardial or pleural fluid. No concerning bony finding. Cholecystectomy clips. IMPRESSION: No evidence of pulmonary thromboembolism. No acute lung findings.
--- NOTE | 2019-03-16 20:26 | ER ---
Nurse's Notes [facility] Name: Ivana Diaz Age: 44 yrs Sex: Female : 1975 Arrival Date: 03/16/2019 Time: 16:37 Bed 8 Private MD: Mary Bañuelos H Diagnosis: Dyspnea, unspecified;Chest pain, unspecified Presentation: 03/16 16:48 Presenting complaint: Sent by Dr. Bañuelos for SOB, worse on exertion x 10 days. Transition hb of care: patient was not received from another setting of care. Onset of symptoms was March 06, 2019. Risk Assessment: Do you want to hurt yourself or someone else? Patient reports no desire to harm self or others. Initial Sepsis Screen: Does the patient meet any 2 criteria? No. Patient's initial sepsis screen is negative. Does the patient have a suspected source of infection? No. Patient's initial sepsis screen is negative. Care prior to arrival: None. 16:48 Method Of Arrival: Ambulatory hb 16:48 Acuity: SHEN 3 hb Triage Assessment: 20:35 General: Appears in no apparent distress. Respiratory: the patient reports symptoms ak1 have resolved. Historical: - Allergies: 16:49 No Known Allergies; hb - Home Meds: 16:49 lisinopril Oral [Active]; hb - PMHx: 16:49 Hypertension; hb - PSHx: 16:49 Cholecystectomy; hb - Immunization history:: Adult Immunizations up to date. - Social history:: Smoking status: Patient/guardian denies using tobacco. - Ebola Screening: : No symptoms or risks identified at this time. Screenin:55 Abuse screen: Denies threats or abuse. Denies injuries from another. Nutritional sg screening: No deficits noted. Tuberculosis screening: No symptoms or risk factors identified. Never had TB. Fall Risk None identified. Assessment: 16:55 General: Appears in no apparent distress. well groomed, well developed, well nourished, sg Behavior is calm, cooperative, appropriate for age. Pain: Denies pain. Neuro: Level of Consciousness is awake, alert, obeys commands, Oriented to person, place, time, situation, Speech is normal, Facial symmetry appears normal. Cardiovascular: Capillary refill is brisk in bilateral fingers Patient's skin is warm and dry. Chest pain is denied. Cardiovascular: Heart tones S1 S2 present. Respiratory: Airway is patent Respiratory effort is even, unlabored, Respiratory pattern is regular, symmetrical. Respiratory: Reports shortness of breath on exertion Breath sounds are clear bilaterally. Denies cough, labored breathing. GI: Abdomen is. : No signs and/or symptoms were reported regarding the genitourinary system. EENT: No signs and/or symptoms were reported regarding the EENT system. Derm: Skin is pink, warm \T\ dry. Musculoskeletal: Circulation, motion, and sensation intact. Range of motion: intact in all extremities. 20:11 General: Appears in no apparent distress. uncomfortable, well groomed, well developed, ak1 Behavior is calm, cooperative, appropriate for age. Pain: Denies pain. Neuro: Level of Consciousness is awake, alert, obeys commands, Oriented to person, place, time, situation, Ui Engineer are equal bilaterally Speech is normal. Cardiovascular: Heart tones S1 S2 present Rhythm is regular. Respiratory: Reports shortness of breath on exertion pt denies SOB at this time while resting. Airway is patent Respiratory effort is even, unlabored, Respiratory pattern is regular, symmetrical, Breath sounds are clear bilaterally. GI: No signs and/or symptoms were reported involving the gastrointestinal system. : No signs and/or symptoms were reported regarding the genitourinary system. EENT: No signs and/or symptoms were reported regarding the EENT system. Derm: Skin is pink, warm \T\ dry. Musculoskeletal: No signs and/or symptoms reported regarding the musculoskeletal system. 20:35 Reassessment: Patient appears in no apparent distress at this time. Patient is alert, ak1 oriented x 3, equal unlabored respirations, skin warm/dry/pink. Patient states feeling better. Patient states symptoms have improved. Vital Signs: 16:49 BP 138 / 88; Pulse 86; Resp 20; Temp 97.9; Pulse Ox 100% on R/A; Weight 73.48 kg; hb Height 5 ft. 7 in. (170.18 cm); Pain 8/10; 18:00 BP 136 / 80; Pulse 82; Resp 18; Pulse Ox 99% on R/A; sg 20:04 BP 118 / 83; Pulse 76; Resp 15; Temp 98.1(O); Pulse Ox 100% on R/A; ak1 16:49 Body Mass Index 25.37 (73.48 kg, 170.18 cm) ED Course: 16:37 Patient arrived in ED. ag5 16:38 Mary Bañuelos DO is Private Physician. ag5 16:49 Triage completed. hb 16:49 Arm band placed on. hb 16:55 Patient has correct armband on for positive identification. Bed in low position. Call sg light in reach. Side rails up X2. monitoring tech on. Pulse ox on. NIBP on. 17:06 Alexis Villeda PA is PHCP. [facility] 17:06 Fabiano Guzmán MD is Attending Physician. [facility] 17:17 Radiology exam delayed due to lab results not completed at this time. (BUN/Creatinine) 2 test not completed at this time. 17:27 EKG done, by plasma processing technician. reviewed by Alexis JEROME. 3 17:29 Hoa Gtz, RN is Primary Nurse. ph 17:44 Radiology exam delayed due to lab results not completed at this time. (BUN/Creatinine). 2 18:06 Initial lab(s) drawn, by de, sent to lab. Inserted saline lock: 22 gauge in left lt1 antecubital area, using aseptic technique. 18:37 XRAY Chest (1 view) In Process Unspecified. EDMS 19:21 CT Chest For PE Angio In Process Unspecified. EDMS 20:24 Mary Bañuelos DO is Referral Physician. m 20:36 No provider procedures requiring assistance completed. IV discontinued, intact, ak1 bleeding controlled, No redness/swelling at site. Pressure dressing applied. Administered Medications: No medications were administered Outcome: 20:25 Discharge ordered by MD. [facility] 20:36 Discharged to home ambulatory, with family. ak1 20:36 Condition: good 20:36 Discharge instructions given to patient, family, Instructed on discharge instructions, follow up and referral plans. Demonstrated understanding of instructions, follow-up care. 20:43 Patient left the ED. ak1 Signatures: Dispatcher [employer] EDMS Wilfred Chakraborty RN RN sg Mickail, Joel, PA PA [facility] Heather Laughlin RN RN ak1 Hoa Gtz RN RN Juana Gibbons RN RN Francie Orellana 2 Shantel Ventura sm3 Ronel Bartlett ag5 Klarissa Mace lt1 Corrections: (The following items were deleted from the chart) 20:13 20:04 BP 118 / 83; Pulse 76bpm; Resp 15bpm; Pulse Ox 100% RA; ak1 ak1
--- NOTE | 2019-03-16 20:26 | EDPHYS ---
Physician Documentation [facility] Name: Ivana Diaz Age: 44 yrs Sex: Female : 1975 Arrival Date: 03/16/2019 Time: 16:37 Bed 8 Private MD: Mary Bañuelos H ED Physician Fabiano Guzmán HPI: 03/16 17:12 This 44 yrs old Female presents to ER via Ambulatory with complaints of jmm Shortness Of Breath. 17:12 The patient has shortness of breath with light activity. Onset: The symptoms/episode jmm began/occurred gradually. Duration: The symptoms are continuous, and are steadily getting worse. The patient's shortness of breath is aggravated by exertion. Associated signs and symptoms: Pertinent positives: chest pain. This is a 44 year old female with a history of htn that presents to the ED with complaints of worsening shortness of breath. Symptoms are exacerbated with exertion. Patient also complains of chest pain which radiates to her upper back. Denies history of CAD, denies family history of CAD, denies drug use. Denies tobacco smoking. . Historical: - Allergies: 16:49 No Known Allergies; hb - Home Meds: 16:49 lisinopril Oral [Active]; hb - PMHx: 16:49 Hypertension; hb - PSHx: 16:49 Cholecystectomy; hb - Immunization history:: Adult Immunizations up to date. - Social history:: Smoking status: Patient/guardian denies using tobacco. - Ebola Screening: : No symptoms or risks identified at this time. ROS: 17:12 Constitutional: Negative for fever, chills, and weight loss. jmm 17:12 Abdomen/GI: Negative for abdominal pain, nausea, vomiting, diarrhea, and constipation. 17:12 MS/Extremity: Negative for injury and deformity, Neuro: Negative for headache, weakness, numbness, tingling, and seizure. 17:12 Cardiovascular: Positive for chest pain. 17:12 Respiratory: Positive for dyspnea on exertion, shortness of breath. 17:12 Back: Positive for radiated pain. 17:12 All other systems are negative. Exam: 17:12 Head/Face: atraumatic. Eyes: EOMI, no conjunctival erythema appreciated jmm 17:12 ENT: Moist Mucus Membranes Neck: Trachea midline, Supple Chest/axilla: Normal chest wall appearance and motion. 17:12 Constitutional: The patient appears alert, awake, anxious, uncomfortable. 17:12 Cardiovascular: Rate: normal, Rhythm: regular, Pulses: no pulse deficits are appreciated. 17:12 Respiratory: the patient does not display signs of respiratory distress, Respirations: normal, Breath sounds: are clear throughout. 17:12 Abdomen/GI: Inspection: abdomen appears normal, Bowel sounds: normal, Palpation: abdomen is soft and non-tender, in all quadrants. 17:12 Back: ROM is normal. 17:12 Musculoskeletal/extremity: ROM: intact in all extremities. 17:12 Skin: Appearance: Color: normal in color. 17:12 Neuro: Orientation: is normal, Mentation: is normal, Memory: is normal. 17:12 Psych: Behavior/mood is pleasant, cooperative. Vital Signs: 16:49 BP 138 / 88; Pulse 86; Resp 20; Temp 97.9; Pulse Ox 100% on R/A; Weight 73.48 kg; hb Height 5 ft. 7 in. (170.18 cm); Pain 8/10; 18:00 BP 136 / 80; Pulse 82; Resp 18; Pulse Ox 99% on R/A; sg 20:04 BP 118 / 83; Pulse 76; Resp 15; Temp 98.1(O); Pulse Ox 100% on R/A; ak1 16:49 Body Mass Index 25.37 (73.48 kg, 170.18 cm) hb MDM: 17:12 Patient medically screened. [facility] 20:24 Data reviewed: vital signs, nurses notes. Counseling: I had a detailed discussion with [facility] the patient and/or guardian regarding: the historical points, exam findings, and any diagnostic results supporting the discharge/admit diagnosis, the need for outpatient follow up, to return to the emergency department if symptoms worsen or persist or if there are any questions or concerns that arise at home. 22:20 Refusal of service: The patient/guardian displays adequate decision making capability [facility] and despite a detailed discussion of alternatives, benefits, risks, and consequences refuses: Admission to the hospital for further work-up and treatment. ED course: HEART SCORE IS NEGATIVE. I discussed the patient with Dr. Bañuelos whom will follow up with the patient. I also discussed the need to follow up with Dr. Fields as well. . 03/16 17:13 Order name: Basic Metabolic Panel; Complete Time: 18:56 [facility] 03/16 17:13 Order name: CBC with Diff; Complete Time: 18:29 [facility] 03/16 17:13 Order name: LFT's; Complete Time: 18:56 [facility] 03/16 17:13 Order name: Magnesium; Complete Time: 18:56 [facility] 03/16 17:13 Order name: NT PRO-BNP; Complete Time: 18:56 [facility] 03/16 17:13 Order name: PT-INR; Complete Time: 18:34 [facility] 03/16 17:13 Order name: Troponin (emerg Dept Use Only); Complete Time: 18:56 [facility] 03/16 17:13 Order name: XRAY Chest (1 view); Complete Time: 18:56 [facility] 03/16 17:13 Order name: EKG; Complete Time: 17:14 [facility] 03/16 17:13 Order name: Cardiac monitoring; Complete Time: 18:07 [facility] 03/16 17:13 Order name: EKG - Nurse/Tech; Complete Time: 18:07 [facility] 03/16 17:13 Order name: IV Saline Lock; Complete Time: 18:07 [facility] 03/16 17:13 Order name: Labs collected and sent; Complete Time: 18:07 [facility] 03/16 17:13 Order name: CT Chest For PE Angio; Complete Time: 19:34 [facility] 03/16 17:13 Order name: O2 Per Protocol; Complete Time: 18:07 [facility] 03/16 17:13 Order name: O2 Sat Monitoring; Complete Time: 18:07 jm Administered Medications: No medications were administered Disposition: 03/17 06:44 Co-signature as Attending Physician, Fabiano Guzmán MD I agree with the assessment and kdr plan of care. Disposition: 03/16/19 20:25 Discharged to Home. Impression: Dyspnea, unspecified, Chest pain, unspecified. - Condition is Stable. - Discharge Instructions: Nonspecific Chest Pain, Shortness of Breath. - Medication Reconciliation Form, Thank You Letter, Antibiotic Education, Prescription Opioid Use form. - Follow up: Mary Bañuelos DO; When: 1 - 2 days; Reason: Recheck today's complaints, Continuance of care, Re-evaluation by your physician. Signatures: Dispatcher [employer] EDMS Fabiano Guzmán MD MD kdr Mickail, Joel, PA PA jmm Krenek, Amber RN RN ak1 Juana Gibbons RN RN Corrections: (The following items were deleted from the chart) 03/16 20:43 20:25 03/16/2019 20:25 Discharged to Home. Impression: Dyspnea, unspecified; Chest ak1 pain, unspecified. Condition is Stable. Forms are Medication Reconciliation Form, Thank You Letter, Antibiotic Education, Prescription Opioid Use. Follow up: Mary Bañuelos; When: 1 - 2 days; Reason: Recheck today's complaints, Continuance of care, Re-evaluation by your physician. michel
[2019-03-16 22:09] VITALS: BP 118/83; TEMP 98.1; O2SAT 100
--- NOTE | 2019-03-17 07:24 | EKG ---
Test Date: 2019-03-16 Test Time: 17:21:41 [employer]: ANGELES MEASUREMENT RESULTS: Intervals: Rate: 81 WY: 160 QRSD: 92 QT: 378 QTc: 439 [place]: P: 58 WY: 160 QRS: 89 T: 73 INTERPRETIVE STATEMENTS: Normal sinus rhythm Normal ECG Compared to ECG 02/10/2019 22:38:05 No significant changes Electronically Signed On 03-17-19 07:22:05 CDT by Dimas Griffith
== END 2019-03-16 20:43 | disposition home or self-care (01) ==
LOC: ER 16:35
DX: R07.9 Chest pain, unspecified (principal); I10 Essential (primary) hypertension
CPT/HCPCS: 93005; 85025; 80048; 36415; 83735; 85610; 80076; 84484; 83880; 71275; 71045; 99284; Q9967

== ENCOUNTER 2024-01-21 11:07 | Emergency (ER) | payer OTHER ==
[2024-01-21] MEDS ORDERED: NA CHLORIDE 0.9% 1,000 ML ONE (11:50)
[2024-01-21 11:53] LABS: Absolute Lymphocytes (CBC) 1.2 K/uL (0.7-4.9); Absolute Monocytes 0.5 K/uL (0.1-1.3); Absolute Neutrophil 8.2 K/uL (1.8-8.0); Basophils % 0.2 % (0-1.3); Eosinophils % 0.3 % (0-4.4); Hematocrit 41.5 % (36.0-45.0); Hemoglobin 13.8 g/dL (12.0-15.0); MCH 31.4 pg (27.0-35.0); MCHC 33.3 g/dL (32.0-36.0); MCV 94.4 fL (80-100); MPV 8.2 fL (7.6-11.3); Monocytes % 4.9 % (3.3-12.3); Neutrophils % 82.6 % (41.7-73.7); Platelets 229 thou/uL (152-406)
[2024-01-21 11:57] LABS: Specific Gravity 1.015 (1.005-1.030); Sqamous Epithelial None Seen /HPF (None Seen); Urine Bacteria None Seen /HPF (<20); Urine Bilirubin NEGATIVE (Negative); Urine Blood 2+ (Negative); Urine Clarity Clear (Clear); Urine Color Yellow (Yellow); Urine Culture Reflex Order NOT NEEDED; Urine Glucose NEGATIVE (Negative); Urine Ketones NEGATIVE (Negative); Urine Microscopic Reflex YN ORDER UMIC; Urine Mucus Slight /HPF (None Seen); Urine Nitrite NEGATIVE (Negative); Urine Protein NEGATIVE (Negative); Urine Urobilinogen Normal (Normal); Urine WBC None Seen /HPF (<5); Urine pH 5.5 (5.0-7.0)
[2024-01-21 12:09] LABS: Albumin 3.6 g/dL (3.4-5.0); Anion Gap 8.3 mEq/L (5.0-15.0); Bilirubin Total 0.4 mg/dL (0.2-1.0); Globulin 3.5 g/dL (2.3-3.5); Potassium 3.3 mEq/L (3.5-5.1); Protein, Total 7.1 g/dL (6.4-8.2)
--- NOTE | 2024-01-21 12:57 | RAD REPORT ---
EXAM DESCRIPTION: CTAbdomen Pelvis W Contrast - 01/21/2024 12:48 pm CLINICAL HISTORY: Abdominal pain. ABD PAIN COMPARISON: CT ABD PELVIS W CONTRAST dated 05/13/2009 TECHNIQUE: CT imaging of the abdomen and pelvis was performed with 100 ml non-ionic IV contrast. All CT scans are performed using dose optimization technique as appropriate and may include automated exposure control or mA/KV adjustment according to patient size. FINDINGS: The lung bases are clear. The liver demonstrates mild fatty infiltration with several benign cysts. Cholecystectomy clips. Sple en, pancreas, adrenal glands and kidneys are within normal limits. No bowel obstruction, free air, free fluid or abscess. Moderate wall thickening is seen of the cecum and ascending colon. The appendix is normal. No evidence of significant lymphadenopathy. IUD is pres ent. Mild lumbar degenerative changes. IMPRESSION: Moderate thickening of the cecum and ascending colon is noted suggesting nonspecific col itis. No pneumatosis coli, free fluid or abscess. Consideration may be given to follow-up colonoscopy for direct visualization.
[2024-01-21] MEDS ORDERED: ONDANSETRON 4 MG/2 ML VIAL ONE (13:08)
[2024-01-21] MEDS ORDERED: MORPHINE 4 MG/ML SYR ONE (13:08)
[2024-01-21] MEDS ORDERED: METRONIDAZOLE 500mg IVPB 500 MG/100 ML BAG IV ONE (13:56)
[2024-01-21] MEDS ORDERED: DICYCLOMINE HCL 20 MG/2 ML AMP IM ONE (13:56)
[2024-01-21] MEDS ORDERED: CEFTRIAXONE 1000 MG/VIAL ONE (13:56)
[2024-01-21] MEDS ORDERED: ACETAMINOPHEN 500 MG TAB ONE (14:05)
[2024-01-21] MEDS ORDERED: HYDROCODONE/APAP 5/325 MG TAB ONE (14:12)
--- NOTE | 2024-01-21 14:21 | ER ---
Nurse's Notes [facility] Name: Ivana Diaz Age: 48 yrs Sex: Female : 1975 Arrival Date: 01/21/2024 Time: 11:07 Bed 20 Private MD: Diagnosis: Colitits;Lower abdominal pain, unspecified Presentation: 01/20 11:16 Chief complaint: Patient states: ABD PAIN X 3 DAYS. RIGHT LOWER ABD. TOOK TYLENOL X 1 db HOUR AGO. 11:17 Coronavirus screen: Client denies travel out of the [place] in the last 14 days. At this db time, the client does not indicate any symptoms associated with coronavirus-19. Ebola Screen: Patient negative for fever greater than or equal to 101.5 degrees Fahrenheit, and additional compatible Ebola Virus Disease symptoms Patient denies exposure to infectious person. Patient denies travel to an Ebola-affected area in the 21 days before illness onset. No symptoms or risks identified at this time. Initial Sepsis Screen: Does the patient meet any 2 criteria? HR > 90 bpm. No. Patient's initial sepsis screen is negative. Does the patient have a suspected source of infection? No. Patient's initial sepsis screen is negative. Risk Assessment: Do you want to hurt yourself or someone else? Patient reports no desire to harm self or others. Onset of symptoms was January 21, 2024. 11:17 Method Of Arrival: Ambulatory db 11:17 Acuity: SHEN 3 db Triage Assessment: 11:18 General: Appears in no apparent distress. comfortable, Behavior is calm, cooperative. db Pain: Complains of pain in abdomen. GI: Abdomen is flat, non-distended, Abdomen is tender to palpation in right lower quadrant. Historical: - Allergies: 11:18 No Known Allergies; db - Home Meds: 11:18 lisinopril-hydrochlorothiazide oral [Active]; Lasix Oral [Active]; db - PMHx: 11:18 Hypertension; db - Immunization history:: Adult Immunizations unknown. - Infectious Disease History:: Denies. - Social history:: Smoking status: Patient denies any tobacco usage or history of. Screenin:24 [facility] ED Fall Risk Assessment (Adult) History of falling in the last 3 months, tm6 including since admission No falls in past 3 months (0 pts) Confusion or Disorientation No (0 pts) Intoxicated or Sedated No (0 pts) Impaired Gait No (0 pts) Mobility Assist Device Used No (0 pt) Altered Elimination No (0 pt) Score/Fall Risk Level 0 - 2 = Low Risk Oriented to surroundings, Maintained a safe environment, Educated pt \T\ family on fall prevention, incl call for assistance when getting out of bed. Abuse screen: Denies threats or abuse. Denies injuries from another. Nutritional screening: No deficits noted. Tuberculosis screening: No symptoms or risk factors identified. Assessment: 11:47 General: Appears in no apparent distress. Behavior is calm, cooperative. Pain: tm6 Complains of pain in right lower quadrant Pain does not radiate. Pain currently is 6 out of 10 on a pain scale. Quality of pain is described as tender, Pain began 2-3 days ago. Is continuous. Neuro: Level of Consciousness is awake, alert, obeys commands, Oriented to person, place, time, situation. Cardiovascular: Patient's skin is warm and dry. Respiratory: Airway is patent Respiratory effort is even, unlabored, Respiratory pattern is regular, symmetrical. GI: Abdomen is flat, non-distended, Bowel sounds present X 4 quads. Abd is soft Abdomen is tender to palpation in right lower quadrant Reports lower abdominal pain. : No signs and/or symptoms were reported regarding the genitourinary system. EENT: No signs and/or symptoms were reported regarding the EENT system. Derm: No signs and/or symptoms reported regarding the dermatologic system. Musculoskeletal: No signs and/or symptoms reported regarding the musculoskeletal system. 12:28 Reassessment: Patient appears in no apparent distress at this time. Patient and/or tm6 family updated on plan of care and expected duration. Pain level reassessed. Patient is alert, oriented x 3, equal unlabored respirations, skin warm/dry/pink. 13:13 Reassessment: Patient and/or family updated on plan of care and expected duration. Pain tm6 level reassessed. Patient is alert, oriented x 3, equal unlabored respirations, skin warm/dry/pink. Patient states symptoms have not improved. 14:30 Reassessment: discharge pending completion of IV antibiotics. tm6 Vital Signs: 11:17 BP 121 / 87; Pulse 111; Resp 16; Temp 99.1; Pulse Ox 100% ; Weight 70.31 kg; Height 5 db ft. 7 in. ; 12:28 BP 109 / 71; Pulse 97; Pulse Ox 95% on R/A; Pain 4/10; tm6 13:13 BP 120 / 79; Pulse 101; Temp 100(O); Pulse Ox 100% on R/A; Pain 7/10; tm6 11:17 Body Mass Index 24.28 (70.31 kg, 170.18 cm) db 12:28 Pain Scale: Adult tm6 13:13 Pain Scale: Adult tm6 ED Course: 11:09 Patient arrived in ED. im 11:12 Aureliano Jenkins DO is Attending Physician. ms3 11:18 Triage completed. db 11:18 Arm band placed on Patient placed in an exam room. db 11:23 Kimberly Taylor, CURTIS is Primary Nurse. tm6 11:24 Patient has correct armband on for positive identification. Bed in low position. Call tm6 light in reach. Side rails up X 1. Provided Education on: use of call ochoa. Client placed on continuous cardiac and pulse oximetry monitoring. NIBP monitoring applied. Pulse ox on. NIBP on. Door closed. Noise minimized. Warm blanket given. Pillow given. 11:47 Inserted saline lock: 20 gauge in right antecubital area, using aseptic technique. tm6 Blood collected. Flushed with 10 mL NS. 11:47 CBC with Diff Sent. tm6 11:47 CMP Sent. tm6 11:47 Lipase Sent. tm6 11:47 Urinalysis w/ reflexes Sent. tm6 12:50 CT Abd/Pelvis - IV Contrast Only In Process Unspecified. EDMS 14:20 Melo Barger MD is Referral Physician. ms3 16:24 No provider procedures requiring assistance completed. IV discontinued, intact, tm6 bleeding controlled, No redness/swelling at site. Pressure dressing applied. Administered Medications: 11:55 Drug: NS 0.9% IV 1000 ml IV at 1 bolus Per protocol; 1000 mL bolus Route: IV; Rate: 1 tm6 bolus; Site: right antecubital; 13:13 Drug: morphine IVP or IV 4 mg IVP once over 4 mins Route: IVP; Infused Over: 4 mins; tm6 Site: right antecubital; 14:23 Follow up: Response: No adverse reaction tm6 13:13 Drug: Ondansetron IVP 4 mg IVP once; over 2 minutes Route: IVP; Site: right antecubital;tm6 14:23 Follow up: Response: No adverse reaction tm6 14:09 Drug: metroNIDAZOLE IVPB 500 mg 100 ml IVPB at 200 ml/hr once over 30 mins Volume: 100 tm6 ml; Route: IVPB; Rate: 200 ml/hr; Infused Over: 30 mins; Site: right antecubital; 14:09 Drug: Dicyclomine IM 20 mg IM once Route: IM; Site: right vastus lateralis; tm6 14:24 Follow up: Response: No adverse reaction tm6 14:10 Drug: Rocephin IV 1 grams IV at calculated rate once; Given slow IV push per pharmacy tm6 instructions Route: IV; Rate: calculated rate; Site: right antecubital; 14:23 Follow up: Response: No adverse reaction tm6 14:23 Drug: HYDROcodone-acetaminophen PO 5 mg-325 mg 1 tabs PO once Route: PO; tm6 Medication: 11:47 VIS not applicable for this client. tm6 Outcome: 14:20 Discharge ordered by . ms3 16:25 Discharged to home ambulatory, with family, tm6 16:25 Condition: stable 16:25 Discharge instructions given to patient, family, Instructed on discharge instructions, follow up and referral plans. medication usage, Demonstrated understanding of instructions, follow-up care, medications, Prescriptions given X 2, 16:25 Patient left the ED. tm6 Signatures: Dispatcher [employer] EDMS Juana Gibbons RN RN hb Sims, Marcus, DO DO ms3 Adela Grossman RN RN db Mayda Toussaint Tawney, RN RN tm6 Corrections: (The following items were deleted from the chart) 11:18 11:16 Chief complaint: Patient states: ABD PAIN X 3 DAYS maverick mitchell
--- NOTE | 2024-01-21 14:21 | EDPHYS ---
Physician Documentation [facility] Name: Ivana Diaz Age: 48 yrs Sex: Female : 1975 Arrival Date: 01/21/2024 Time: 11:07 Bed 20 Private MD: ED Physician Aureliano Jenkins HPI: 01/20 21:14 This 48 yrs old Female presents to ER via Ambulatory with complaints of ms3 Abdominal Pain, Fever. 21:14 48-year-old female with past medical history of hypertension presents to the emergency ms3 department for 3 days of fever, chills, abdominal pain. Patient states her maximum temperature was 103 and she has taken Tylenol and Motrin with decrease of her temperature. Patient went to urgent care yesterday and was told to go to the emergency department if symptoms became worse or did not improve. Patient states her pain is currently periumbilical and rated a 6/10. She denies any alleviating or inciting factors. Historical: - Allergies: 11:18 No Known Allergies; db - Home Meds: 11:18 lisinopril-hydrochlorothiazide oral [Active]; Lasix Oral [Active]; db - PMHx: 11:18 Hypertension; db - Immunization history:: Adult Immunizations unknown. - Infectious Disease History:: Denies. - Social history:: Smoking status: Patient denies any tobacco usage or history of. ROS: 21:14 Cardiovascular: Negative for chest pain, and palpitations. Respiratory: Negative for ms3 shortness of breath, cough, wheezing, and pleuritic chest pain, 21:14 MS/Extremity: Negative for injury and deformity, Skin: Negative for injury, rash, and discoloration, 21:14 Constitutional: Positive for chills, fever, 21:14 Abdomen/GI: Positive for abdominal pain, Exam: 21:14 Constitutional: This is a well developed, well nourished patient who is awake, alert, ms3 and in no acute distress. Head/Face: Normocephalic, atraumatic. Chest/axilla: Normal chest wall appearance and motion. Nontender with no deformity. Cardiovascular: Regular rate and rhythm with a normal S1 and S2. No gallops, murmurs, or rubs. Normal PMI, no JVD. No pulse deficits. Respiratory: Lungs have equal breath sounds bilaterally, clear to auscultation and percussion. No rales, rhonchi or wheezes noted. No increased work of breathing, no retractions or nasal flaring. 21:14 Abdomen/GI: Inspection: abdomen appears normal, Bowel sounds: normal, Palpation: moderate abdominal tenderness, in the right lower quadrant, Vital Signs: 11:17 BP 121 / 87; Pulse 111; Resp 16; Temp 99.1; Pulse Ox 100% ; Weight 70.31 kg; Height 5 db ft. 7 in. ; 12:28 BP 109 / 71; Pulse 97; Pulse Ox 95% on R/A; Pain 4/10; tm6 13:13 BP 120 / 79; Pulse 101; Temp 100(O); Pulse Ox 100% on R/A; Pain 7/10; tm6 11:17 Body Mass Index 24.28 (70.31 kg, 170.18 cm) db 12:28 Pain Scale: Adult tm6 13:13 Pain Scale: Adult tm6 MDM: 11:24 Patient medically screened. ms3 21:14 Differential diagnosis: viral Infection, UTI, Diverticulitis versus appendicitis. Data ms3 reviewed: vital signs, nurses notes, lab test result(s), radiologic studies, and as a result, I will discharge patient. Consideration of Admission/Observation Escalation of care including admission/observation considered. Patient offered observation and encouraged to stay as temperature was elevated in the emergency department with abdominal pain. Patient states she wishes to be discharged and will return if symptoms worsen. I considered the following discharge prescriptions or medication management in the emergency department Medications were administered in the Emergency Department. See MAR. Care significantly affected by the following chronic conditions: Hypertension. Counseling: I had a detailed discussion with the patient and/or guardian regarding the historical points, exam findings, and any diagnostic results supporting the discharge/admit diagnosis, lab results, radiology results, the need for outpatient follow up, to return to the emergency department if symptoms worsen or persist or if there are any questions or concerns that arise at home. Special discussion: Based on the patient's Hx, exam, and Dx evaluation, there is no indication for emergent surgery or inpatient Tx. It is understood by the patient/guardian that if the Sx's persist or worsen they need to return immediately for re-evaluation. ED course: Discussed recommendation of observation with patient and patient declines. Discussed strict return precautions with patient to include fever, worsening symptoms, altered mental status, vomiting, or any other concerns. Patient understands and agrees with plan. All questions were answered. Return precautions discussed include worsening symptoms, or any other concerns. Patient given prescription for Augmentin for colitis. 01/20 11:24 Order name: CBC with Diff; Complete Time: 12:14 ms3 01/20 11:24 Order name: CMP; Complete Time: 12:14 ms3 01/20 11:24 Order name: Lipase; Complete Time: 12:14 ms3 01/20 11:24 Order name: Urinalysis w/ reflexes; Complete Time: 12:14 ms3 01/20 11:24 Order name: CT Abd/Pelvis - IV Contrast Only; Complete Time: 13:10 ms3 01/20 11:24 Order name: IV Saline Lock; Complete Time: 11:47 ms3 01/20 11:24 Order name: Labs collected and sent; Complete Time: 11:47 ms3 Administered Medications: 11:55 Drug: NS 0.9% IV 1000 ml IV at 1 bolus Per protocol; 1000 mL bolus Route: IV; Rate: 1 tm6 bolus; Site: right antecubital; 13:13 Drug: morphine IVP or IV 4 mg IVP once over 4 mins Route: IVP; Infused Over: 4 mins; tm6 Site: right antecubital; 14:23 Follow up: Response: No adverse reaction tm6 13:13 Drug: Ondansetron IVP 4 mg IVP once; over 2 minutes Route: IVP; Site: right antecubital;tm6 14:23 Follow up: Response: No adverse reaction tm6 14:09 Drug: metroNIDAZOLE IVPB 500 mg 100 ml IVPB at 200 ml/hr once over 30 mins Volume: 100 tm6 ml; Route: IVPB; Rate: 200 ml/hr; Infused Over: 30 mins; Site: right antecubital; 14:09 Drug: Dicyclomine IM 20 mg IM once Route: IM; Site: right vastus lateralis; tm6 14:24 Follow up: Response: No adverse reaction tm6 14:10 Drug: Rocephin IV 1 grams IV at calculated rate once; Given slow IV push per pharmacy tm6 instructions Route: IV; Rate: calculated rate; Site: right antecubital; 14:23 Follow up: Response: No adverse reaction tm6 14:23 Drug: HYDROcodone-acetaminophen PO 5 mg-325 mg 1 tabs PO once Route: PO; tm6 Disposition Summary: 01/21/24 14:20 Discharge Ordered Notes: Location: Home ms3 Condition: Stable ms3 Diagnosis - Colitits ms3 - Lower abdominal pain, unspecified ms3 Followup: ms3 - With: Melo Barger MD - When: 2 - 3 days - Reason: Recheck today's complaints Discharge Instructions: - Discharge Summary Sheet ms3 - Abdominal Pain, Adult ms3 - Colitis ms3 Forms: - Medication Reconciliation Form ms3 - Antibiotic Education ms3 - Prescription Opioid Use ms3 - Patient Portal Instructions ms3 - Leadership Thank You Letter ms3 Prescriptions: - Augmentin 875-125 mg Oral Tablet - take 1 tablet ORAL route every 12 hours for 10 days; 20 tablet; Refills: 0, ms3 Product Selection Permitted - dicyclomine 20 mg Oral tablet - take 1 tablet ORAL route 3 times per day; 21 tablet; Refills: 0, Product ms3 Selection Permitted Signatures: Dispatcher [employer] Aureliano Dee DO DO ms3 Adela Grossman, RN RN db Kimberly Taylor RN RN tm6
[2024-01-21] MEDS ORDERED: IBUPROFEN 400 MG TAB ONE (15:08)
[2024-01-21] MEDS ORDERED: IBUPROFEN 200 MG TAB PO ONE (15:08)
[2024-01-21 16:41] VITALS: O2SAT 100
[2024-01-21 16:42] VITALS: BP 120/79; TEMP 100
== END 2024-01-21 16:25 | disposition home or self-care (01) ==
LOC: ER 11:07
DX: K52.9 Noninfective gastroenteritis and colitis, unspecified (principal); R50.9 Fever, unspecified; I10 Essential (primary) hypertension
CPT/HCPCS: 85025; 81001; 36415; 83690; 80053; 74177; 96375; 96372; 96374; 99284; Q9967; J0500; J2405; J7030; J0696

== ENCOUNTER 2024-01-23 18:36 | Inpatient (IN) | payer OTHER ==
[2024-01-23] MEDS ORDERED: ONDANSETRON 4 MG/2 ML VIAL ONE (19:01)
[2024-01-23] MEDS ORDERED: NA CHLORIDE 0.9% 1,000 ML ONE (19:01)
[2024-01-23] MEDS ORDERED: FAMOTIDINE 20 MG/2 ML VIAL IV ONE (19:01)
[2024-01-23 19:43] LABS: Absolute Eosinophils 0.1 K/uL (0-0.5); Absolute Lymphocytes (CBC) 1.8 K/uL (0.7-4.9); Absolute Monocytes 0.5 K/uL (0.1-1.3); Absolute Neutrophil 4.3 K/uL (1.8-8.0); Basophils % 0.6 % (0-1.3); Eosinophils % 0.9 % (0-4.4); Hematocrit 36.1 % (36.0-45.0); Hemoglobin 12.4 g/dL (12.0-15.0); Lymphocytes % 26.4 % (15.3-44.8); MCH 31.8 pg (27.0-35.0); MCHC 34.3 g/dL (32.0-36.0); MCV 92.8 fL (80-100); Monocytes % 7.6 % (3.3-12.3); Neutrophils % 64.5 % (41.7-73.7); Nucleated Red Blood Cells % 0.1 % (0-0); Platelets 245 thou/uL (152-406); RBC Red Blood Cell Count 3.89 M/uL (3.86-4.86); Red Cell Distribution Width 13.1 % (12.1-15.2)
[2024-01-23 19:45] LABS: Specific Gravity 1.015 (1.005-1.030); Urine Bacteria <20 /HPF (<20); Urine Bilirubin NEGATIVE (Negative); Urine Blood 3+ (Negative); Urine Clarity Turbid (Clear); Urine Color Light-Yellow (Yellow); Urine Crystals Unidentified Few /HPF (None Seen); Urine Culture Reflex Order NOT NEEDED; Urine Glucose NEGATIVE (Negative); Urine Ketones NEGATIVE (Negative); Urine Microscopic Reflex YN ORDER UMIC; Urine Mucus Slight /HPF (None Seen); Urine Nitrite NEGATIVE (Negative); Urine Protein NEGATIVE (Negative); Urine RBC 21-50 /HPF (None Seen); Urine Urobilinogen Normal (Normal); Urine WBC None Seen /HPF (<5)
[2024-01-23 19:58] LABS: Albumin 2.9 g/dL (3.4-5.0); Albumin/Globulin Ratio 0.8 (1.1-1.8); Anion Gap 7.2 mEq/L (5.0-15.0); Bilirubin Total 0.2 mg/dL (0.2-1.0); Globulin 3.5 g/dL (2.3-3.5); Potassium 3.2 mEq/L (3.5-5.1); Protein, Total 6.4 g/dL (6.4-8.2)
[2024-01-23] MEDS ORDERED: KETOROLAC 30 MG/ML INJ ONE (21:12)
[2024-01-23] MEDS ORDERED: HYDROMORPHONE HCL 1 MG/ML INJ ONE (21:47)
[2024-01-23] MEDS ORDERED: PIPERACIL/TAZO 3.375 GM VIAL IV ONE (21:47)
[2024-01-23] MEDS ORDERED: NA CHLORIDE 0.9% 100 ML ONE (21:47)
--- NOTE | 2024-01-23 22:15 | RAD REPORT ---
EXAM DESCRIPTION: CTAbdomen Pelvis W Contrast - 01/23/2024 10:06 pm CLINICAL HISTORY: Abdominal pain. ABD PAIN COMPARISON: <Comparisons> TECHNIQUE: Biphasic CT imaging of the abdomen and pelvis was performed with 100 ml non-ionic IV cont rast. All CT scans are performed using dose optimization technique as appropriate and may include automated exposure control or mA/KV adjustment according to patient size. FINDINGS: The lung bases are clear.Cholecystectomy. The liver contains several benign cysts. Spleen, pancreas, adrenal glands and kidneys are within norm al limits. No bowel obstruction, free air, free fluid or abscess. Moderate thickening and inflammation of the ri ght colon is present. The appendix is normal. No evidence of significant lymphadenopathy. IUD is wit hin the uterus. No suspicious bony findings. IMPRESSION: Moderate right-sided colitis pattern.
[2024-01-23] MEDS ORDERED: ACETAMINOPHEN 500 MG TAB PO PRN (22:32)
[2024-01-23] MEDS ORDERED: ALBUTEROL 2.5 MG/3 ML NEB SOL NEB PRN (22:32)
[2024-01-23] MEDS ORDERED: METOCLOPRAMIDE 10 MG/2mL INJ IV PRN (22:40)
[2024-01-23] MEDS ORDERED: HYDRALAZINE HCL 20 MG/ML VIAL IV PRN (22:43)
--- NOTE | 2024-01-23 22:51 | P.HP ---
Certification for Inpatient With expected LOS: >2 Midnights Patient will require the following post-hospital care: None Practitioner: I am a practitioner with admitting privileges, knowledge of patient current condition, hospital course, and medical plan of care. Services: Services provided to patient in accordance with Admission requirements found in Title 42 Section 412.3 of the Code of Federal Regulations Patient History Date of Service: 01/24/24 Reason for admission: Abdominal pain History of Present Illness: 48-year-old female with past medical history of HTN, status post cholecystectomy who presented because of abdominal pain crampy recurrent, associated with nausea and vomiting. Patient also have intermittent fevers. She has presented to the emergency room 2 days ago and was diagnosed with colitis. She received IV Flagyl and cefepime and was discharged on Augmentin with dicyclomine. Patient still getting home she continued to have crampy abdominal pain, intermittent fevers. She has been using Tylenol and Motrin for the fever as well. She stated temp today was as high as 103 and she has taken Tylenol 1 hour prior to ER visit. She developed new diarrhea today, diarrhea is watery, nonbloody,. She has had 2 episodes since. She presented to the ED because of persistent symptoms. She states she has been compliant with her Augmentin since the last 2 days. On arrival in the ED. vital signs were stable, afebrile, CBC and BMP were unremarkable except for low potassium. CT of the abdomen and pelvics shows moderate right-sided colitis pattern. Allergies No Known Allergies Allergy (Verified 02/11/19 01:09) Home Medications: Lisinopril/Hydrochlorothiazide [Lisinopril-Hctz 20-12.5 mg Tab] 1 tab PO DAILY 02/11/19 Amox/Clavulanate [Augmentin 875-125 Tab] 875 mg PO BID #10 tab 02/12/19 Codeine/APAP [Tylenol W/Codeine #3 tab] 1 tab PO Q4HP PRN #30 tab 02/12/19 - Past Medical/Surgical History Diabetic: No -: Hypertension -: Breast augmentation -: Cholecystectomy - Family History Father -: Hypertension, Diabetes Mother -: Hypertension, Diabetes, Other (see notes) Notes: High cholesterol - Social History Smoking Status: Never smoker Alcohol use: Yes CD- Drugs: No Caffeine use: No Place of Residence: Home Physical Examination - Physical Exam General: Alert, In no apparent distress, Oriented x3 HEENT: Atraumatic, Normocephalic, PERRLA, Mucous membr. moist/pink Neck: Supple, 2+ carotid pulse no bruit, JVD not distended Respiratory: Clear to auscultation bilaterally, Normal air movement Cardiovascular: Normal pulses, Regular rate/rhythm, Normal S1 S2 Gastrointestinal: Normal bowel sounds, Soft and benign, Non-distended, No rebound, No guarding, Tenderness Musculoskeletal: No clubbing, No swelling Integumentary: No breakdown, No significant lesion, No tenderness/swelling Neurological: Normal speech, Normal strength at 5/5 x4 extr, Cranial nerves 3-12 intact, Normal reflexes 2+ Lymphatics: No axilla or inguinal lymphadenopathy - Studies Laboratory Data (last 24 hrs) 01/23/24 01/23/24 19:25 19:25 WBC 6.70 Hgb 12.4 Hct 36.1 Plt Count 245 Sodium 138 Potassium 3.2 L BUN 12 Creatinine 0.74 Glucose 109 H Total Bilirubin 0.2 AST 27 ALT 39 Alkaline Phosphatase 72 Lipase 32 Assessment and Plan - Problems (Diagnosis) (1) Colitis Current Visit: Yes Status: Acute - Plan Impression Abdominal colitis Hypertension Plan Admit to inpatient Start empirical Flagyl/Levaquin Gentle IV fluid Replete potassium IV hydralazine as needed for blood pressure Resume home medicationlisinopril/HCTZ in a.m. hold Lasix for now Full liquid diet for now Obtain stool for ova and parasite General Surgery has been consulted, follow Monitor clinical symptoms Lovenox for DVT prophylaxis Full code - Advance Directives Does patient have a Living Will: No Does patient have a Durable POA for Healthcare: No - Code Status/Comfort Care Code Status Assessed: Yes Code Status: Full Code Physician Review: Patient Assessed, Agree with Above Assessment and Plan Time Spent Managing Pts Care (In Minutes): 65
--- NOTE | 2024-01-23 22:57 | ER ---
Nurse's Notes [facility] Name: Ivana Diaz Age: 48 yrs Sex: Female : 1975 Arrival Date: 01/23/2024 Time: 18:36 Bed 19 Private MD: Diagnosis: Indeterminate colitis Presentation: 01/22 18:45 Chief complaint: Patient states: she was evaluated Saturday 01/20 for abdominal pain, ap3 however patient reports she is not getting any better. patient states she is having diffuse abdominal pain nausea, and diarrhea. patient currently rates her pain as a 4/10 on the pain scale. Coronavirus screen: At this time, the client does not indicate any symptoms associated with coronavirus-19. Ebola Screen: No symptoms or risks identified at this time. Initial Sepsis Screen: Does the patient meet any 2 criteria? HR > 90 bpm. No. Patient's initial sepsis screen is negative. Does the patient have a suspected source of infection? No. Patient's initial sepsis screen is negative. Risk Assessment: Do you want to hurt yourself or someone else? Patient reports no desire to harm self or others. Onset of symptoms was January 18, 2024. 18:45 Method Of Arrival: Ambulatory ap3 18:45 Acuity: SHEN 3 ap3 Triage Assessment: 18:48 General: Appears in no apparent distress. Behavior is calm, cooperative, appropriate ap3 for age. Pain: Complains of pain in abdomen Pain currently is 4 out of 10 on a pain scale. Neuro: Level of Consciousness is awake, alert, obeys commands, Oriented to person, place, time, situation, Appropriate for age. Cardiovascular: Patient's skin is warm and dry. Respiratory: Airway is patent Respiratory effort is even, unlabored. GI: Reports lower abdominal pain, upper abdominal pain, diarrhea, nausea. 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 - Infectious Disease History:: Denies. - Social history:: Smoking status: Patient denies any tobacco usage or history of. Screenin:49 [facility] ED Fall Risk Assessment (Adult) History of falling in the last 3 months, ap3 including since admission No falls in past 3 months (0 pts) Confusion or Disorientation No (0 pts) Intoxicated or Sedated No (0 pts) Impaired Gait No (0 pts) Mobility Assist Device Used No (0 pt) Altered Elimination No (0 pt) Score/Fall Risk Level 0 - 2 = Low Risk Oriented to surroundings, Maintained a safe environment, Educated pt \T\ family on fall prevention, incl call for assistance when getting out of bed, Assessed \T\ reinforced patient's understanding of fall precautions, Hourly rounding (assess needs \T\ fall precautionary measures) done, Used ambulatory aids as needed (educated on \T\ assisted with), Used gait belt as appropriate. Abuse screen: Denies threats or abuse. Nutritional screening: No deficits noted. Tuberculosis screening: No symptoms or risk factors identified. Assessment: 19:15 General: Appears in no apparent distress. Behavior is calm, cooperative, appropriate bp for age. 19:15 Pain: Complains of pain in abdomen Pain currently is 4 out of 10 on a pain scale. bp Quality of pain is described as aching, Pain began 1 day ago. Neuro: Level of Consciousness is awake, alert, obeys commands, Oriented to person, place, time, situation. Cardiovascular: Denies chest pain, syncope, Heart tones S1 S2 Capillary refill < 3 seconds Patient's skin is warm and dry. Respiratory: Airway is patent Trachea midline Respiratory effort is even, unlabored, Respiratory pattern is regular, symmetrical. GI: Bowel sounds present in left lower quadrant Abd is soft Reports lower abdominal pain, upper abdominal pain, diarrhea, nausea. : No signs and/or symptoms were reported regarding the genitourinary system. EENT: No deficits noted. Derm: Skin is intact, Skin is dry, Skin is normal. Musculoskeletal: Range of motion: intact in all extremities. 20:00 Reassessment: No changes from previously documented assessment. Patient and/or family rg5 updated on plan of care and expected duration. Pain level reassessed. 21:35 Reassessment: No changes from previously documented assessment. Patient and/or family rg5 updated on plan of care and expected duration. Pain level reassessed. 22:38 Reassessment: No changes from previously documented assessment. Patient and/or family rg5 updated on plan of care and expected duration. Pain level reassessed. Patient is alert, oriented x 3, equal unlabored respirations, skin warm/dry/pink. 23:09 Reassessment: Patient and/or family updated on plan of care and expected duration. Pain rg5 level reassessed. Patient is alert, oriented x 3, equal unlabored respirations, skin warm/dry/pink. Patient states symptoms have improved. Vital Signs: 18:45 BP 138 / 92; Pulse 90; Resp 18; Temp 98.7; Pulse Ox 99% ; Weight 70.76 kg; Height 5 ft. ap3 7 in. ; Pain 4/10; 19:15 BP 103 / 76; Pulse 74; Resp 17; Temp 98.3; Pulse Ox 98% on R/A; Pain 4/10; bp 20:00 BP 108 / 86; Pulse 74; Resp 17; Pulse Ox 98% ; Pain 4/10; rg5 21:00 BP 110 / 78; Pulse 73; Resp 17; Pulse Ox 98% on R/A; Pain 6/10; rg5 22:00 BP 99 / 77; Pulse 73; Resp 17; Pulse Ox 97% on R/A; rg5 23:00 BP 106 / 71; Pulse 67; Resp 17; Temp 98; Pulse Ox 99% on R/A; Pain 4/10; rg5 01/23 00:15 BP 117 / 82; Pulse 60; Resp 17; Temp 98(O); Pulse Ox 99% on R/A; Pain 4/10; rg5 01/22 18:45 Body Mass Index 24.43 (70.76 kg, 170.18 cm) ap3 01/22 18:45 Pain Scale: Adult ap3 19:15 Pain Scale: Adult bp 20:00 Pain Scale: Adult rg5 21:00 Pain Scale: Adult rg5 23:00 Pain Scale: Adult rg5 01/23 00:15 Pain Scale: Adult rg5 Vitals: 01/22 19:15 Cardiac Rhythm Assessment Regular Sinus rhythm. rg5 Jayme Coma Score: 19:15 Eye Response: spontaneous(4). Motor Response: obeys commands(6). Verbal Response: bp oriented(5). Total: 15. ED Course: 18:38 Patient arrived in ED. im 18:40 Jose G Aguilar PA is PHCP. cp 18:40 Anh Faustin MD is Attending Physician. cp 18:48 Triage completed. ap3 18:50 Arm band placed on right wrist. ap3 18:57 Terry Browning, CURTIS is Primary Nurse. bp 19:14 Papi Smith MD is Attending Physician. cp 19:15 Patient has correct armband on for positive identification. Bed in low position. Call bp light in reach. Side rails up X 1. 19:15 No provider procedures requiring assistance completed. Inserted saline lock: 18 gauge bp in right antecubital area, using aseptic technique. Blood collected. Flushed with 10 mL NS. 22:08 CT Abd/Pelvis - IV Contrast Only In Process Unspecified. EDMS 22:55 Ileana Chan MD is Hospitalizing Provider. cp 23:07 Awaiting bed assignment. rg5 23:07 Provided Education on: needs for admit. rg5 23:07 Patient admitted, IV remains in place. intact, bleeding controlled, No redness/swelling rg5 at site. Administered Medications: 19:28 Drug: NS 0.9% IV 1000 ml IV at 1 bolus Per protocol; 1000 mL bolus Route: IV; Rate: 1 bp bolus; Site: right antecubital; 01/23 00:24 Follow up: Response: No adverse reaction; IV Status: Completed infusion; IV Intake: rg5 1000ml 01/22 19:28 Drug: Famotidine IVP 20 mg IVP once; dilute with 10 mL 0.9% NaCl; give over 2 minutes bp Route: IVP; Site: right antecubital; 22:35 Follow up: Response: No adverse reaction rg5 19:28 Drug: Ondansetron IVP 4 mg IVP once; over 2 minutes Route: IVP; Site: right antecubital;bp 22:36 Follow up: Response: No adverse reaction rg5 21:10 Drug: Ketorolac IVP 15 mg IVP once Route: IVP; Site: right antecubital; rg5 22:36 Follow up: Response: No adverse reaction rg5 22:00 Drug: HYDROmorphone IVP 1 mg IVP once Route: IVP; Site: right antecubital; rg5 22:36 Follow up: Response: No adverse reaction rg5 22:00 Drug: Piperacillin-Tazobactam IVPB 3.375 grams IVPB once over 60 mins; (mix in NS 100 rg5 mL) Route: IVPB; Infused Over: 60 mins; Site: right antecubital; 01/23 00:23 Follow up: Response: No adverse reaction; IV Status: Infusion continued; IV Intake: rg5 100ml Medication: 01/22 19:15 VIS not applicable for this client. bp Intake: 01/23 00:23 IV: 100ml; Total: 100ml. rg5 00:24 IV: 1000ml; Total: 1100ml. rg5 Outcome: 01/22 22:57 Decision to Hospitalize by Provider. cp 01/23 00:22 Admitted to Tele accompanied by nurse, via wheelchair, rg5 Condition: stable Demonstrated understanding of 00:45 Patient left the ED. pc2 Signatures: Dispatcher [employer] EDMS Jose G Aguilar PA PA cp Peltier, Brian, RN RN Aretha Cloud RN RN ap3 Mayda Toussaint Rommel RN RN rg5 Patti Aguila, RN RN pc2
--- NOTE | 2024-01-23 22:57 | EDPHYS ---
Physician Documentation [facility] Name: Ivana Diaz Age: 48 yrs Sex: Female : 1975 Arrival Date: 01/23/2024 Time: 18:36 Bed 19 Private MD: ED Physician Papi Smith HPI: 01/22 18:50 This 48 yrs old Female presents to ER via Ambulatory with complaints of cp Abdominal Pain. 18:50 The patient presents with abdominal pain that is diffuse. Associated signs and cp symptoms: Pertinent positives: fever, nausea, Pertinent negatives: blood in stools, chest pain, constipation, diarrhea, vomiting. The symptoms are described as constant. Severity of pain: in the emergency department the pain is unchanged despite home interventions. 18:50 Patient returns to ED after being seen 01-21-2024 for abdominal pain. Patient was DX cp with colitis and discharged home with prescribed Augmentin and Metronidazole. Patient reports abdominal pain worse. 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 - Infectious Disease History:: Denies. - Social history:: Smoking status: Patient denies any tobacco usage or history of. ROS: 18:55 Constitutional: Positive for fever, poor PO intake, cp 18:55 Eyes: Negative for injury, pain, redness, and discharge, cp 18:55 ENT: Negative for drainage from ear(s), ear pain, sore throat, difficulty swallowing, difficulty handling secretions, 18:55 Cardiovascular: Negative for chest pain, edema, palpitations, 18:55 Respiratory: Negative for cough, shortness of breath, wheezing, 18:55 Abdomen/GI: Positive for abdominal pain, nausea, Negative for vomiting, diarrhea, constipation, 18:55 Back: Negative for pain at rest, pain with movement, 18:55 : Negative for urinary symptoms, vaginal bleeding, 18:55 Neuro: Negative for altered mental status, headache, syncope, weakness, 18:55 All other systems are negative, Exam: 19:00 Constitutional: The patient appears in no acute distress, alert, awake, cp non-diaphoretic, non-toxic, well developed, well nourished, uncomfortable, 19:00 Head/Face: Normocephalic, atraumatic. cp 19:00 Eyes: Periorbital structures: appear normal, Conjunctiva: normal, no exudate, no injection, Sclera: no appreciated abnormality, Lids and lashes: appear normal, bilaterally, 19:00 ENT: External ear(s): are unremarkable, Nose: is normal, Mouth: Lips: moist, Oral mucosa: pink and intact, moist, Posterior pharynx: Airway: no evidence of obstruction, patent, 19:00 Chest/axilla: Inspection: normal, 19:00 Cardiovascular: Rate: normal, Rhythm: regular, 19:00 Respiratory: the patient does not display signs of respiratory distress, Respirations: normal, no use of accessory muscles, no retractions, labored breathing, is not present, Breath sounds: are clear throughout, no decreased breath sounds, no stridor, no wheezing, 19:00 Abdomen/GI: Inspection: abdomen appears normal, Bowel sounds: active, all quadrants, Palpation: soft, in all quadrants, moderate abdominal tenderness, in all quadrants, rebound tenderness, is not appreciated, involuntary guarding, is not appreciated, 19:00 Back: CVA tenderness, is absent, 19:00 Skin: no rash present. 19:00 Neuro: Orientation: to person, place \T\ time. Mentation: is normal, Motor: moves all fours, strength is normal, Sensation: is normal, Vital Signs: 18:45 BP 138 / 92; Pulse 90; Resp 18; Temp 98.7; Pulse Ox 99% ; Weight 70.76 kg; Height 5 ft. ap3 7 in. ; Pain 4/10; 19:15 BP 103 / 76; Pulse 74; Resp 17; Temp 98.3; Pulse Ox 98% on R/A; Pain 4/10; bp 20:00 BP 108 / 86; Pulse 74; Resp 17; Pulse Ox 98% ; Pain 4/10; rg5 21:00 BP 110 / 78; Pulse 73; Resp 17; Pulse Ox 98% on R/A; Pain 6/10; rg5 22:00 BP 99 / 77; Pulse 73; Resp 17; Pulse Ox 97% on R/A; rg5 23:00 BP 106 / 71; Pulse 67; Resp 17; Temp 98; Pulse Ox 99% on R/A; Pain 4/10; rg5 01/23 00:15 BP 117 / 82; Pulse 60; Resp 17; Temp 98(O); Pulse Ox 99% on R/A; Pain 4/10; rg5 01/22 18:45 Body Mass Index 24.43 (70.76 kg, 170.18 cm) ap3 01/22 18:45 Pain Scale: Adult ap3 19:15 Pain Scale: Adult bp 20:00 Pain Scale: Adult rg5 21:00 Pain Scale: Adult rg5 23:00 Pain Scale: Adult rg5 01/23 00:15 Pain Scale: Adult rg5 Jayme Coma Score: 01/22 19:15 Eye Response: spontaneous(4). Motor Response: obeys commands(6). Verbal Response: bp oriented(5). Total: 15. MDM: 18:40 Patient medically screened. cp 20:00 Differential diagnosis: appendicitis, bowel obstruction, diverticulitis, non-specific cp abd pain, pancreatitis, Peptic Ulcer Disease, Perf. Duodenal Ulcer, Perf. Gastric Ulcer, Pyelonephritis, Ureterolithiasis, urinary tract infection. 21:25 ED course: consult with DR Fraser as requested by patient. Recommends CT abdomen/pelvis cp and will consult. Requests admission to services of hospitalist. Start Zosyn antibiotic. 22:25 Data reviewed: vital signs, nurses notes, lab test result(s), radiologic studies, CT cp scan, plain films. 22:25 Consideration of Admission/Observation Patient was admitted/placed on observation. I cp considered the following discharge prescriptions or medication management in the emergency department Medications were administered in the Emergency Department. See JUL. 01/22 18:47 Order name: CBC with Diff; Complete Time: 20:19 cp 01/22 18:47 Order name: CMP; Complete Time: 20:19 cp 01/22 20:19 Interpretation: Normal except: K 3.2; CL 108; GLUC 109; ALB 2.9; A/G 0.8. cp 01/22 18:47 Order name: Lipase; Complete Time: 20:19 cp 01/22 18:47 Order name: Urinalysis w/ reflexes; Complete Time: 20:19 cp 01/22 20:19 Interpretation: Normal except: UCLA Turbid; UBLD 3+; UESTR 25; URBC 21-50. cp 01/22 18:49 Order name: Lactate w/ 2H reflex if indic.; Complete Time: 20:19 cp 01/22 21:24 Order name: Blood Culture Adult (2) cp 01/22 22:44 Order name: CBC with Automated Diff EDAL 01/22 22:44 Order name: CBC with Automated Diff EDAL 01/22 22:44 Order name: Comprehensive Metabolic Panel EDAL 01/22 22:44 Order name: Comprehensive Metabolic Panel EDAL 01/22 21:24 Order name: CT Abd/Pelvis - IV Contrast Only; Complete Time: 22:18 cp 01/22 22:19 Interpretation: Report reviewed. 01/22 22:44 Order name: CONS Physician Consult EDAL 01/22 18:47 Order name: IV Saline Lock; Complete Time: 19:29 01/22 18:47 Order name: Labs collected and sent; Complete Time: 19:29 cp Administered Medications: 19:28 Drug: NS 0.9% IV 1000 ml IV at 1 bolus Per protocol; 1000 mL bolus Route: IV; Rate: 1 bp bolus; Site: right antecubital; 01/23 00:24 Follow up: Response: No adverse reaction; IV Status: Completed infusion; IV Intake: rg5 1000ml 01/22 19:28 Drug: Famotidine IVP 20 mg IVP once; dilute with 10 mL 0.9% NaCl; give over 2 minutes bp Route: IVP; Site: right antecubital; 22:35 Follow up: Response: No adverse reaction rg5 19:28 Drug: Ondansetron IVP 4 mg IVP once; over 2 minutes Route: IVP; Site: right antecubital;bp 22:36 Follow up: Response: No adverse reaction rg5 21:10 Drug: Ketorolac IVP 15 mg IVP once Route: IVP; Site: right antecubital; rg5 22:36 Follow up: Response: No adverse reaction rg5 22:00 Drug: HYDROmorphone IVP 1 mg IVP once Route: IVP; Site: right antecubital; rg5 22:36 Follow up: Response: No adverse reaction rg5 22:00 Drug: Piperacillin-Tazobactam IVPB 3.375 grams IVPB once over 60 mins; (mix in NS 100 rg5 mL) Route: IVPB; Infused Over: 60 mins; Site: right antecubital; 01/23 00:23 Follow up: Response: No adverse reaction; IV Status: Infusion continued; IV Intake: rg5 100ml Disposition Summary: 01/23/24 22:57 Hospitalization Ordered Notes: Hospitalization Status: Inpatient Admission cp Provider: Ileana Chan cp Location: Telemetry/MedSurg (Inpatient) cp Condition: Stable cp Problem: an ongoing problem cp Symptoms: have improved cp Bed/Room Type: Standard cp Room Assignment: 205(01/24/24 00:09) sp Diagnosis - Indeterminate colitis cp Forms: - Medication Reconciliation Form cp - SBAR form cp - Leadership Thank You Letter cp Addendum: 01/30/2024 20:33 I was immediately available for consultation during this patient's visit. I did not e c2 personally see the patient or discuss the patient with the [place]. . Signatures: Dispatcher [employer] EDMS Thalia Mullen Corey, PA PA cp Peltier, Brian, RN RN bp Aretha Wan RN RN ap3 Papi Smith MD MD ec2 Kayden Greco RN RN rg5 Corrections: (The following items were deleted from the chart) 01/22 18:48 18:48 CBC+H.LAB.BRZ ordered. EDMS EDMS 18:48 18:48 COMPREHENSIVE METABOLIC PANEL+C.LAB.BRZ ordered. EDMS EDMS 18:48 18:48 LIPASE+C.LAB.BRZ ordered. EDMS EDMS 18:48 18:48 Urinalysis+U.LAB.BRZ ordered. EDMS EDMS 21:19 21:12 Abdomen Pelvis W Con+CT.RAD.BRZ ordered. EDMS EDMS 01/23 00:01/22 22:57 cp sp
[2024-01-23] MEDS ORDERED: Levofloxacin500mg IV 500 MG/100 ML BAG IV ONE (23:00)
[2024-01-24] MEDS: METRONIDAZOLE 500mg IVPB 500 MG/100 ML BAG IV SCH (00:58)
[2024-01-24] MEDS: NS KCL 20MEQ 20 MEQ/1,000 ML BAG IV SCH (00:58)
[2024-01-24 01:28] VITALS: O2SAT 99
[2024-01-24] MEDS: Levofloxacin500mg IV 500 MG/100 ML BAG IV SCH (02:13)
[2024-01-24] MEDS: MORPHINE 2 MG/ML SYR IV PRN (03:21)
[2024-01-24 05:09] LABS: Absolute Eosinophils 0.1 K/uL (0-0.5); Absolute Lymphocytes (CBC) 2.3 K/uL (0.7-4.9); Absolute Monocytes 0.6 K/uL (0.1-1.3); Absolute Neutrophil 3.9 K/uL (1.8-8.0); Basophils % 0.5 % (0-1.3); Eosinophils % 1.7 % (0-4.4); Hematocrit 32.7 % (36.0-45.0); Hemoglobin 11.2 g/dL (12.0-15.0); Lymphocytes % 33.1 % (15.3-44.8); MCH 31.8 pg (27.0-35.0); MCHC 34.3 g/dL (32.0-36.0); MCV 92.7 fL (80-100); MPV 7.9 fL (7.6-11.3); Monocytes % 8.8 % (3.3-12.3); Neutrophils % 55.9 % (41.7-73.7); Nucleated Red Blood Cells % 0.1 % (0-0); Platelets 236 thou/uL (152-406); RBC Red Blood Cell Count 3.53 M/uL (3.86-4.86)
[2024-01-24 05:31] LABS: Albumin 2.6 g/dL (3.4-5.0); Albumin/Globulin Ratio 0.9 (1.1-1.8); Anion Gap 6.5 mEq/L (5.0-15.0); Bilirubin Total 0.2 mg/dL (0.2-1.0); Potassium 3.5 mEq/L (3.5-5.1); Protein, Total 5.6 g/dL (6.4-8.2)
--- NOTE | 2024-01-24 07:36 | P.PN ---
Date of Service: 01/24/24 Subjective: feels ~same as yesterday continues with crampy abdominal pains had 103 fever prior to ER arrival, has been afebrile since then. few episodes of diarrhea since coming to ED ROS: 10 point ROS as noted above, otherwise negative Physical Exam: GEN: Alert, oriented, NAD CV: Regular rate and rhythm, no edema Pulm: Nonlabored respirations on room air, clear bilaterally ABD: Soft, mild right sided-tenderness, nondistended Neuro: Normal speech, normal affect vitals reviewed Problem List: Acute Right-sided colitis Hypertension Acute Right-sided colitis Presents with crampy abdominal pains, nausea/vomiting/diarrhea. +intermittent fever - 103 prior to ER arrival seen in Er 01/20; diagnosed with nonspecific-colitis. Went home with augmentin / dicyclomine but symptoms persisted/worsened so she came back. CT abdomen (01/22): moderate right-sided colitis pattern Dr. Fraser, general surgeon consulted continue medical management. No evidence to warrant surgical intervention at this time. would benefit from GI evaluation as outpatient. +will need colonoscopy in 2-3 months once acute episode resolves. serial abdominal exams continue empiric flagyl / levaquin (01/22-) afebrile, no leukocytosis. follow blood cultures full liquid diet pain control Continue IV fluids Hypertension takes lisinopril/HCTZ at home IV hydralazine for now VTE: Ambulatory Code: Full Dispo: Home, ~1-2 days n/v/d resolves, pain improves, surgical recs Time Spent Managing Pts Care (In Minutes): 41
[2024-01-24] MEDS: FAMOTIDINE 20 MG/2 ML VIAL IV SCH (08:34)
[2024-01-24] MEDS: ENOXAPARIN 40 MG/0.4 ML SQ SCH (08:44)
--- NOTE | 2024-01-24 11:36 | CON ---
Date of Consultation: 01/24/2024 Reason For Consultation: Abdominal pain. History Of Present Illness: The patient is a 48-year-old female who presented to the emergency room with worsening of her right-sided abdominal pain, crampy in nature, associated with nausea and vomiti ng, and high fevers over 103. The patient was seen in the ER couple of days ago and was found to hav e colitis on the right side of the colon. Her vitals were stable. Her white count was normal. Her abdominal exam was essentially unremarkable with no evidence of peritonitis. The patient was sent ho ma on oral antibiotics; however, her symptoms became worse. She also has developed some diarrhea. S he came to the emergency room, was admitted for failed outpatient therapy for colitis. She is awake and alert. Feels a little better. Her pain is controlled on parenteral pain management. She does n ot have any nausea or vomiting at this time. She denies any sore throat, runny nose, cough, headache s, or dizziness. No chest pain. Review of Systems: Otherwise unremarkable. Past Medical History: Significant for hypertension. Past Surgical History: Significant for breast augmentation and cholecystectomy. Allergies: NO ALLERGIES. Social History: The patient does not smoke. Drinks alcohol occasionally. Family History: Hypertension and diabetes. Physical Examination: Vital Signs: Stable. Currently, she is afebrile. General: She is awake, alert, oriented x3. Head and Neck: No neck masses. Throat clear. Neck is supple. Chest: Clear. Heart: S1, S2. Abdomen: Soft, nondistended. Positive bowel sounds. Tenderness on the right side, but no peritonit is. Extremities: Neurovascularly intact. Neuro: Nonfocal. Laboratory Data: Shows a white count 7000, there is no left shift. Chemistry reviewed. Lactic acid less than 0.8, otherwise essentially unremarkable. CT of the abdomen and pelvis reviewed with the r adiologist, which shows worsening of the colitis on CAT scan and moderate colitis pattern. Assessment: Colitis. Plan: Admit. The patient can have clear liquids. Continue IV antibiotics. Serial abdominal exam. No need for any surgical intervention at this time. The patient was advised that she would benefit from GI consultation as an outpatient or inpatient if we have availability. She will require colonos copy in 4 to 6 weeks after the resolution of the colitis. Plan of care discussed with the patient in detail. /MODL Voice ID: [id number] Report ID: [id number]
[2024-01-24] MEDS: HYDROCODONE/APAP 5/325 MG TAB PO PRN (12:26)
[2024-01-24] MEDS: Levofloxacin 750mg IV 750 MG/150 ML BAG IV SCH (20:38)
[2024-01-25 07:16] LABS: Absolute Eosinophils 0.1 K/uL (0-0.5); Absolute Lymphocytes (CBC) 1.9 K/uL (0.7-4.9); Absolute Monocytes 0.5 K/uL (0.1-1.3); Absolute Neutrophil 3.1 K/uL (1.8-8.0); Basophils % 0.8 % (0-1.3); Eosinophils % 1.4 % (0-4.4); Hematocrit 35.9 % (36.0-45.0); Hemoglobin 12.1 g/dL (12.0-15.0); Lymphocytes % 34.3 % (15.3-44.8); MCH 31.6 pg (27.0-35.0); MCHC 33.8 g/dL (32.0-36.0); MCV 93.6 fL (80-100); Monocytes % 8.6 % (3.3-12.3); Neutrophils % 54.9 % (41.7-73.7); Platelets 251 thou/uL (152-406); RBC Red Blood Cell Count 3.83 M/uL (3.86-4.86); Red Cell Distribution Width 12.8 % (12.1-15.2)
[2024-01-25 07:27] LABS: Anion Gap 9.2 mEq/L (5.0-15.0); Bilirubin Total 0.3 mg/dL (0.2-1.0); Globulin 3.1 g/dL (2.3-3.5); Magnesium 2.1 mg/dL (1.6-2.4); Potassium 4.2 mEq/L (3.5-5.1); Protein, Total 6.1 g/dL (6.4-8.2)
--- NOTE | 2024-01-25 12:14 | P.PN ---
Subjective Date of Service: 01/25/24 Chief Complaint: Abdominal pain Patient reports significant improvement in her abdominal pain. She denies any diarrhea No recorded fever. She has been tolerating clear liquid diet. Physical Examination - Vital Signs Temperature: 97.7 F Blood Pressure: 125/75 Pulse: 67 Respirations: 20 Pulse Ox (%): 100 Assessment And Plan - Plan Physical Exam: GEN: Alert, oriented, NAD CV: Regular rate and rhythm, no edema Pulm: Nonlabored respirations on room air, clear to auscultation bilateral, ABD: Soft, nontender, nondistended Neuro: Normal speech, normal affect vitals reviewed Problem List: Acute Right-sided colitis Hypertension Acute Right-sided colitis Clinically improving Dr. Fraser, general surgeon is following. continue medical management with antibiotics. GI consulted to evaluate patient. Patient would benefit from colonoscopy in 2-3 months once acute episode resolves. serial abdominal exams continue IV Flagyl and Levaquin Blood cultures: No growth to date. Diet advancement per Dr. Fraser. Analgesics as needed. Hypertension Patient takes lisinopril/HCTZ at home which is on hold for now. IV hydralazine for BP spikes. VTE: Ambulatory Code: Full Dispo: Home, 1 day
--- NOTE | 2024-01-25 14:12 | PN ---
Date of Progress Note: 01/25/2024 Subjective: Patient is awake and alert. Pain is better. Vitals are stable. She is afebrile. Her white count is 5.6. Chemistry reviewed. Her albumin is slightly low. Her blood cultures are negati ve, so far. Her abdomen is soft and nondistended. Minimal tenderness on the right side. No evidenc e of peritonitis. Assessment: Moderate colitis, right side of the colon. Recommendations: Slowly advance the diet. Continue IV antibiotics. We will get a GI consult and krupa ochoa will need a colonoscopy in 4-[address] Barger, and he has been consulted. Hopefully, disc harge in 24-48 hours. /MODL Voice ID: [id number] Report ID: [id number]
[2024-01-25] MEDS: CHOLESTYRAMINE/ASP 4 GM/PKT PO SCH (17:00)
--- NOTE | 2024-01-25 19:18 | CON ---
Date of Consultation: 01/25/2024 Reason For Consultation: Unexplained right-sided colitis with severe right upper quadrant greater th an right lower quadrant pain, fevers, chills. History Of Present Illness: The patient is a 48-year-old female with history of hypertensio n, hyperlipidemia, laparoscopic cholecystectomy in 2019 and breast augmentation in 2004. The patient presented to the hospital with a 1-month history of right upper quadrant greater than right lower qu adrant generalized lesser pain over the past month. The patient states on admission, she was 10/10, now she is down to 7/10. The patient has been in and out of the hospital emergency room and various other evaluations in [facility] due to this pain. CT scan shows colitis of the cecum and ascending colon that is moderate. Her white count is normal. She has some nausea, vomiting on admission, but currently denies any nausea, vomiting, night sweats, change in weight, melena, hematochezia, hematem esis, coffee-grounds emesis. She has had fevers and chills with temperature up to 103 degrees Fahren heit. She does report a change in bowel habits with soft stools since this pain started. Normally, she has firm stools, now they are soft. She reports eating cottage cheese and yogurts off and on, bu t does not know really anything that really makes the pain better or worse that she can find on her o wn. Also, patient denies prior colonoscopy, any family history of inflammatory bowel disease, colon cancer, or other colon disorders. Past Medical History: Significant for hypertension, hyperlipidemia, laparoscopic cholecystectomy in 2019, and breast augmentation in 2004. Medications: At home include lisinopril and hydrochlorothiazide and Augmentin she was given in the e mergency room for she went home a few days ago and then she had Tylenol No. 3. Allergies: NKDA. Social History: She is , 2 sons. No tobacco. Quit in 2009. Alcohol occasional. Family History: Father has diabetes, hypertension, hyperlipidemia, gastroesophageal reflux disease, and glaucoma. Mother has diabetes, hypertension, hyperlipidemia, gastroesophageal reflux disease and glaucoma as well. Review of Systems: The patient had nausea, vomiting on admission, none now. The patient continues to have right upper q uadrant greater than right lower quadrant pain greater than generalized pain. Fevers and chills, she denied. She has also had mild change in bowel habits. Stools are now soft instead of firm. She de nies any melena, hematochezia, hematemesis, coffee-grounds emesis, hematuria, dysuria, polydipsia, mu scle aches, joint aches, backaches, depression, anxiety. No night sweats. No change in weight. Physical Examination: Vital Signs: She is 5 feet 7 inches, 156 pounds, BMI 24.4 kg/sq m. Temperature of 97.7 degrees Fahr enheit, pulse 67, respiration 20, blood pressure 125/75, O2 saturation 100%. General: She is a well-nourished, well-developed female, lying in bed. Mild distress. She has 7/10 pain in bed, but she smiles and laughs. HEENT: Normocephalic, atraumatic. Anicteric. Pupils equal, round, and reactive to light. Extraocu lar movements intact. Oropharynx clear. Neck: Supple. No masses. Respirations: Clear to auscultation bilaterally. Cardiac: Regular rate and rhythm. Gastrointestinal: Positive bowel sounds. Soft, nondistended. Pain in the right upper quadrant grea ter than in right lower quadrant. Generalized pain is much less. She does have some mild guarding. No rebound. No peritoneal or Rodriges signs. Extremities: No clubbing, cyanosis, or edema. 2+ pulses. Neuro: Alert and oriented x3. Grossly nonfocal. 5/5 motor strength. Sensation is light to touch, able to move all extremities well. 5/5 motor. Laboratory Data: The patient has a white count of 5.6, hemoglobin of 12.1 down from 12.4 on admissio n, hematocrit 35.9, MCV of 94, platelet count 251, polys of 55%, lymphocytes 34%, monocytes 9%, eosin ophils 1%. She has a sodium 141, potassium 4.2, chloride 110, bicarb 26, BUN of 5, creatinine of 0.6 , glucose 87, calcium 8.9. Magnesium 3.1. Total bilirubin 0.3, AST of 25, ALT of 34, alkaline phosp hatase 51, total protein 6.1, albumin 3.0. Lipase of 32. UA showed 3+ blood, 25 leukocyte esterase, 21-50 rbc's, no white blood cells seen, less than 5-10 squamous epithelial cells, less than 20 bacte raimundo, turbid, pH is 6.06. Specific gravity of 1.015. CT scan shows right-sided colitis that is moder ate, includes the cecum and ascending colon. Impression: 1.Right-sided colitis in a cecum and ascending colon. Differential would favor infection versus inf lammatory bowel disease versus other. However, in the setting of the patient having this for over a month, she has less likely infection. More likely, inflammatory bowel disease. CT scan of the abdom en and pelvis revealed right-sided colitis. This is moderate, extending from the cecum to the ascend ing colon. The pain is predominantly in the right upper quadrant and left main greater than the righ t lower quadrant, 10/10, now down to 7/10 with IV pain medicines. This has been ongoing over the t month as stated above. Pain medicines in hospital are making somewhat better. The patient is eati ng food recently and this morning hospital made the pain worse. She has fever up to 103 degrees Fahr enheit with chills, so experiencing fevers and chills and nausea vomiting on admission has disappeare d. She has no night sweats. No change in weight. No melena, no hematochezia, no hematemesis, no co ffee-grounds emesis, no hematuria. Though her UA was positive for blood. 2.Possible urinary tract infection with positive UA for 25 leukocyte esterase and blood or nephritis . 3.History of hypertension, hyperlipidemia, laparoscopic cholecystectomy in 2019 and breast augmentat ion in 2004. Recommendations: 1.Check stool studies. 2.Check IBD panel. 3.Continue IV fluids and IV antibiotics. 4.Add Questran 2 packets p.o. at bedtime. 5.Continue p.r.n. pain medication. 6.Consider IV steroids if IBD confirmed or more suspicion or patient lacks to respond, her pain leve l does not go below 4/10 on conservative therapy. Colonoscopy in 6 weeks or earlier possibly on this admission, if patient's clinical situation does not improve. 7.Consider EGD evaluation, especially in light of right upper quadrant pain. MARIA ISABEL/LUCY Voice ID: [id number] Report ID: [id number]
[2024-01-25 23:59] VITALS: BMI 24.0
[2024-01-26 05:54] LABS: Absolute Eosinophils 0.1 K/uL (0-0.5); Absolute Lymphocytes (CBC) 1.7 K/uL (0.7-4.9); Absolute Monocytes 0.6 K/uL (0.1-1.3); Basophils % 0.6 % (0-1.3); Eosinophils % 1.5 % (0-4.4); Hematocrit 35.9 % (36.0-45.0); Hemoglobin 12.1 g/dL (12.0-15.0); Lymphocytes % 26.8 % (15.3-44.8); MCH 31.2 pg (27.0-35.0); MCHC 33.7 g/dL (32.0-36.0); MCV 92.7 fL (80-100); MPV 7.4 fL (7.6-11.3); Monocytes % 9.9 % (3.3-12.3); Neutrophils % 61.2 % (41.7-73.7); Platelets 293 thou/uL (152-406); RBC Red Blood Cell Count 3.87 M/uL (3.86-4.86)
[2024-01-26 06:08] LABS: Anion Gap 7.9 mEq/L (5.0-15.0); Potassium 3.9 mEq/L (3.5-5.1)
--- NOTE | 2024-01-26 08:00 | P.DS ---
Admission Date: 01/23/24 Discharge Date: 01/26/24 Disposition: ROUTINE DISCHARGE Discharge Condition: FAIR Reason for Admission: Abdominal pain Brief History of Present Illness: 48-year-old female with past medical history of HTN, status post cholecystectomy who presented because of crampy abdominal pain, associated with nausea and vomiting and intermittent fever. She has presented to the emergency room 2 days prior and was diagnosed with colitis. She received IV Flagyl and cefepime and was discharged on Augmentin with dicyclomine. Patient's symptoms did not improve and she continued to experience abdominal pain and fever. She developed watery, nonbloody diarrhea. In the ED, CT of the abdomen and pelvis showed moderate right-sided colitis pattern. Patient was hospitalized for further management of colitis status that has failed outpatient treatment Hospital Course: Patient was admitted to the medical floor and the following medical problems addressed Diagnosis Acute Right-sided colitis Hypertension Acute Right-sided colitis Patient was admitted to the medical floor and started on IV Levaquin and Flagyl. Patient was seen and evaluated by surgery Dr. Fraser who recommended medical management. She was also evaluated by GI Dr. Barger, cholestyramine added to the antibiotics and stool studies obtained. Differential diagnosis for the colitis include infectious colitis versus inflammatory bowel disease. Dr. Barger plans to follow-up with patient in the office for further evaluation for IBD. Stool studies are pending to be followed. Patient discharged with oral ciprofloxacin and Flagyl to complete at least 5 days of treatment for infectious colitis. Hypertension Patient takes lisinopril/HCTZ at home which was held during the hospital stay. Patient blood pressure was within normal range during the hospital stay.. Home antihypertensives resumed on discharge. Vital Signs/Physical Exam: Temp Pulse Resp BP Pulse Ox 97.0 F 67 18 145/61 H 98 01/26/24 04:00 01/26/24 04:00 01/26/24 04:00 01/26/24 04:00 01/26/24 04:00 General: Alert, In no apparent distress, Oriented x3 HEENT: Mucous membr. moist/pink, Sclerae nonicteric Neck: Supple, JVD not distended Respiratory: Clear to auscultation bilaterally, Normal air movement Cardiovascular: No edema, Regular rate/rhythm, Normal S1 S2 Gastrointestinal: Normal bowel sounds, Soft and benign, Non-distended, No tenderness Musculoskeletal: No swelling, No tenderness Integumentary: No rashes, No cyanosis Neurological: Normal speech, Normal strength at 5/5 x4 extr Laboratory Data at Discharge: WBC 6.50 thou/uL (4.3-10.9) 01/26/24 05:32 Hgb 12.1 g/dL (12.0-15.0) 01/26/24 05:32 Hct 35.9 % (36.0-45.0) L 01/26/24 05:32 Plt Count 293 thou/uL (152-406) 01/26/24 05:32 Sodium 139 mEq/L (136-145) 01/26/24 05:32 Potassium 3.9 mEq/L (3.5-5.1) 01/26/24 05:32 BUN 7 mg/dL (7-18) 01/26/24 05:32 Creatinine 0.71 mg/dL (0.55-1.02) 01/26/24 05:32 Glucose 93 mg/dL (74-106) 01/26/24 05:32 Magnesium 2.1 mg/dL (1.6-2.4) 01/25/24 06:36 Total Bilirubin 0.3 mg/dL (0.2-1.0) 01/25/24 06:36 AST 25 U/L (15-37) 01/25/24 06:36 ALT 34 U/L (13-56) 01/25/24 06:36 Alkaline Phosphatase 51 U/L (45-117) 01/25/24 06:36 Lipase 32 U/L (13-75) 01/23/24 19:25 Home Medications: Lisinopril/Hydrochlorothiazide [Lisinopril-Hctz 20-12.5 mg Tab] 1 tab PO DAILY 02/11/19 Dicyclomine [Bentyl*] 10 mg PO BID 01/24/24 Furosemide [Lasix*] 20 mg PO DAILY 01/24/24 Inulin [Prebiotic Fiber] 2 gm PO DAILY 01/24/24 Rosuvastatin [Crestor*] 10 mg PO BEDTIME 01/24/24 Tirzepatide [Zepbound] 5 mg SQ WMP 01/24/24 Cholestyramine/Asp [Questran Light*] 4 gm PO BIDWM #10 packet 09/04/24 Ciprofloxacin HCl [Cipro 500 MG Tablet] 500 mg PO BID #10 tab 01/26/24 metroNIDAZOLE [Flagyl] 500 mg PO Q8H #15 tab 01/26/24 New Medications: Ciprofloxacin HCl [Cipro 500 MG Tablet] 500 mg PO BID #10 tab metroNIDAZOLE [Flagyl] 500 mg PO Q8H #15 tab Cholestyramine/Asp [Questran Light*] 4 gm PO BIDWM #10 packet Physician Discharge Instructions: Diagnosis: Infectious colitis. IBD not ruled out. Soft diet and thn advance to solid diet as tolerated. Pendng labs to be followed: Stool studies Diet: Soft diet Activity: Ad kel Followup: Mary Bañuelos DO, DO [Primary Care Provider] - 1-2 Weeks Melo Barger MD [ASSOCIATE-ACTIVE - CAN ADMIT] - 1 Week Time spent managing pt's care (in minutes): 33
[2024-01-26 09:04] VITALS: BP 113/76; TEMP 98
--- NOTE | 2024-01-26 09:12 | PN ---
Date of Progress Note: 01/26/2024 Subjective: The patient is awake, alert. Pain is much better. Objective: Vital Signs: Stable. She is afebrile. Abdomen: Soft, nondistended, nontender. Positive bowel sounds. Laboratory Data: Reviewed. White count is normal. There is no left shift. Chemistry reviewed. He r C-reactive protein is 37.3. Dr. Barger did see her. Assessment: Colitis, etiology unclear, but likely inflammatory bowel disease. Recommendations: The patient is cleared from surgical point of view for discharge. Medications per the GI service. The patient will be discharged on Cipro and Flagyl, which is appropriate. Considera tion should be given, however, whether the patient needs steroids or not. We will discuss that with Dr. Barger. /MODL Voice ID: [id number] Report ID: [id number]
[2024-02-04 17:35] LABS: Fat Screen, Stool Normal (Normal)
== END 2024-01-26 10:16 | disposition home or self-care (01) | DRG 392 ==
LOC: ER 18:36 → ERHOLD 22:32 → 2ND 01-24 00:22
PROVIDERS: ADMIT Internal Medicine; ATTEND Internal Medicine
DX: A09 Infectious gastroenteritis and colitis, unspecified (principal); I10 Essential (primary) hypertension; K58.0 Irritable bowel syndrome with diarrhea; Z90.49 Acquired absence of other specified parts of digestive tract; Z79.899 Other long term (current) drug therapy
CPT/HCPCS: 36415; 74177; 80048; 80053; 81001; 82705; 83605; 83631; 83690; 83735; 83993; 85025; 86140; 87040; 96361; 96365; 96366; 96372; 96374; 96375; 99284; 99285; J0500; J0696; J1170; J1650; J2270; J2405; J2543; J3480; J7030; Q9967